=== PATIENT | male | born 1950 | race Caucasian/White ===

== ENCOUNTER → 2017-10-27 10:27 | Outpatient (CLI) | payer MEDICARE, SELFPAY ==
[2017-10-27 13:13] LABS: T4 Free Direct 1.39 ng/dL (0.76-1.46); Thyroid Stim Hormone (TSH) 0.71 uIU/mL (0.358-3.74)
== END ==
PROVIDERS: Family Provider Family Medicine; PCP Family Medicine; Visit Provider Family Medicine
DX: E03.9 Hypothyroidism, unspecified (principal)
CPT/HCPCS: 36415; 84439; 84443

== ENCOUNTER → 2018-09-11 13:57 | Outpatient (CLI) | payer MEDICARE, SELFPAY ==
[2018-09-11 14:37] LABS: Absolute Lymphocyte Count 1.86 X10^3/ul (0.83-4.51); Absolute Neutrophil Count 4.3 X10^3/uL (2.0-7.7); Basophil# 0.05 X10^3/uL; Basophil% 0.7 % (0-1); Eosinophils% 1.4 % (0-5); Hematocrit 45.1 % (40-54); Hemoglobin 14.9 g/dl (13.0-16.5); Lymphocyte # 1.86 X10^3/ul (4.0); Lymphocyte % 26.8 % (19-41); Mean Corpuscular Hgb 29.6 pg (27.0-32.0); Mean Corpuscular Volume 89.7 fL (80-94); Monocyte# 0.59 X10^3/uL; Monocyte% 8.5 % (0-10); Neutrophil # 4.34 X10^3/uL (2.7-7.7); Neutrophil % 62.5 % (47-70); Platelet Count 185 K/mm3 (150-450); RBC Distribution Width CV 13.6 % (11.6-14.6); RBC Distribution Width SD 44.7 fl (35.1-43.9); Red Blood Count 5.03 M/mm3 (4.6-6.2)
[2018-09-11 14:38] LABS: POSITIVE COUNT NO; POSITIVE DIFFERENTIAL NO; POSITIVE MORPHOLOGY NO
[2018-09-11 14:58] LABS: ALB/GLOB Ratio 0.9 RATIO (0.9-2.4); AST(SGOT) 22 U/L (15-37); Alanine Aminotransfer ALT/SGPT 30 U/L (16-61); Albumin, Serum 3.6 g/dL (3.2-5.0); Alkaline Phosphatase 72 U/L (45-117); Anion Gap 4 (5-15); BUN 18 mg/dL (7-18); BUN/Creat Ratio 15.9 RATIO (10-20); Calcium,Total 8.1 mg/dL (8.5-10.1); Chloride 107 mmol/L (98-107); Creatinine, Serum 1.13 mg/dL (0.70-1.30); EST Glomerular Filtration Rate 69 mL/min (>60); Est Glom Filt Rate - Afr Amer 83 mL/min (>60); Glucose 101 mg/dL (74-106); Potassium 3.8 mmol/L (3.5-5.1); Protein, Total 7.6 g/dL (6.4-8.2); Sodium Level 140 mmol/L (136-145); T4 Free Direct 1.34 ng/dL (0.76-1.46); Thyroid Stim Hormone (TSH) 1.62 uIU/mL (0.358-3.74)
== END ==
PROVIDERS: Family Provider Family Medicine; PCP Family Medicine; Visit Provider Family Medicine
DX: E03.9 Hypothyroidism, unspecified (principal); Z51.81 Encounter for therapeutic drug level monitoring
CPT/HCPCS: 36415; 80053; 84439; 84443; 85025

== ENCOUNTER 2021-06-25 15:57 | Inpatient (IN) | payer MEDICARE, SELFPAY ==
[2021-06-25 15:59] VITALS: BP 132/71; PULSE 88; RESP 20; TEMP 37.4; O2SAT 93; BMI 34.2
--- NOTE | 2021-06-25 16:28 | CT_ITS ---
STUDY: CT BRAIN WITHOUT CONTRAST REASON FOR EXAM: Male, 70 years old. Encephalopathy RADIATION DOSAGE (If Supplied By Facility): CTDIvol = ( 44.99 ) mGy, DLP = ( 2489.56 ) mGycm TECHNIQUE: Transaxial CT imaging of the brain was performed without administration of intravenous contrast material. Study is degraded by significant motion artifact Individualized dose optimization techniques were used for this CT. COMPARISON: No relevant priors. FINDINGS: Normal soft tissue structures. Normal calvarium. Normal size ventricles and extra-axial spaces for the patient''s age. Normal white matter tracts of the cerebral hemispheres. Normal basal ganglia and thalami. Normal brainstem. Normal cerebellum. There is no intracranial hemorrhage. There are no findings of an acute ischemic infarction. Normal visualized paranasal sinuses. CT/Brain/Head without Contrast IMPRESSION: Chronic involutional changes of the brain. No acute hemorrhage. However, because of the extensive motion artifact, a subtle hemorrhage could be overlooked. Electronically Signed: Ravi Blanco MD at 17:16 EST , Service support ,
--- NOTE | 2021-06-25 16:29 | EKG12_ITS ---
Test Reason : ALT LOC Blood Pressure : / mmHG Vent. Rate : 086 BPM Atrial Rate : 086 BPM P-R Int : 144 ms QRS Dur : 074 ms QT Int : 372 ms P-R-T Axes : 059 007 079 degrees QTc Int : 445 ms Normal sinus rhythm Low voltage QRS (Limb Leads) Nonspecific T wave abnormality Abnormal ECG Confirmed by TAMERA MAGANA, JOSIE ([id number]), offline editor CHERRY OCONNOR ([id number]) on 06/28/2021 11:07:32 AM Referred By: TIARA Confirmed By:JOSIE PHILIP MD
--- NOTE | 2021-06-25 16:31 | CM.ED ---
SOCIAL WORK Referral Source: Nursing Reason for Consult: Adult Protective Services (APS) Informed by nursing, APS has been involved in past due to living conditions. Patient lives home alone and family checks on patient. Last known well was Monday when family went over to visit. Per report, a family member went to the home on Monday and through the window he was walking naked. Family member did not feel comfortable going into the home. Family then checked on patient today and he was found half of the couch and confused. Nurse states patient is unkempt. Call to Anthony with APS to update patient here in ER. Message left. Plan: Anticipate admission Laurel Clinton MSW, TAX EXPERT
[2021-06-25 17:09] LABS: Absolute Lymphocyte Count 0.79 X10^3/uL (0.83-4.51); Absolute Neutrophil Count 3.9 X10^3/uL (2.0-7.7); Basophil# 0.02 X10^3/uL; Basophil% 0.4 % (0-1); Hematocrit 46.4 % (40-54); Hemoglobin 15.8 g/dL (13.0-16.5); Lymphocyte # 0.79 X10^3/ul (0.83-4.51); Lymphocyte % 14.4 % (19-41); Mean Corp Hgb Conc 34.1 g/dL (32-36); Mean Corpuscular Hgb 29.4 pg (27.0-32.0); Mean Corpuscular Volume 86.2 fL (80-94); Mean Platelet Vol. 11.1 fl (6.2-12.0); Monocyte# 0.71 X10^3/uL; NRBC Flagged by Analyzer 0 % (0-5); Neutrophil # 3.94 X10^3/uL (2.7-7.7); Neutrophil % 71.8 % (47-70); Platelet Count 103 K/mm3 (150-450); RBC Distribution Width CV 13.7 % (11.6-14.6); RBC Distribution Width SD 43.8 fl (35.1-43.9); Red Blood Count 5.38 M/mm3 (4.6-6.2); White Blood Count 5.5 K/mm3 (4.4-11.0)
[2021-06-25 17:12] LABS: International Normalized Ratio 1.1; Prothrombin Time (Protime)PT. 13.2 SECONDS (11.7-14.9)
[2021-06-25 17:13] LABS: Partial Thromboplast Time 42.9 Seconds (24.1-36.2)
[2021-06-25 17:14] LABS: BUN 24 mg/dL (7-18); Creatinine, Serum 0.96 mg/dL (0.70-1.30); Estimated Creatinine Clearance 74.99 ml/min; Glucose 114 mg/dL (74-106)
[2021-06-25 17:15] LABS: ALB/GLOB Ratio 0.7 RATIO (0.9-2.4); AST(SGOT) 42 U/L (15-37); Alanine Aminotransfer ALT/SGPT 28 U/L (16-61); Albumin, Serum 3.2 g/dL (3.2-5.0); Alkaline Phosphatase 52 U/L (45-117); Anion Gap 8 (5-15); BUN/Creat Ratio 24.9 RATIO (10-20); Calcium,Total 7.6 mg/dL (8.5-10.1); Chloride 104 mmol/L (98-107); EST Glomerular Filtration Rate 82 mL/min (>60); Est Glom Filt Rate - Afr Amer 99 mL/min (>60); Globulin 4.3 g/dL (2.2-4.2); Potassium 3.6 mmol/L (3.5-5.1); Protein, Total 7.5 g/dL (6.4-8.2); Sodium Level 137 mmol/L (136-145); Troponin-I HS 16 pg/mL (3.0-78.0)
[2021-06-25 17:20] LABS: Lactic Acid 1.3 mmol/L (0.4-1.9)
--- NOTE | 2021-06-25 17:24 | RAD_ITS ---
STUDY: X-RAY CHEST REASON FOR EXAM: Male, 70 years old. CHEST PAIN Fever TECHNIQUE: XR Chest 1 View COMPARISON: 06/28/2012 FINDINGS: Prominent perihilar markings. Normal size heart. Normal mediastinum and sophia. Normal visualized pulmonary arteries. There is atherosclerotic calcification of the aortic arch with tortuosity. There are diffuse degenerative changes of the visualized thoracic spine. There is degenerative osteoarthritis of the bilateral shoulders. There is no demonstrated abnormality of the visualized soft tissue structures of the upper abdomen. RAD/Chest 1 View (Portable) IMPRESSION: There are bilateral perihilar infiltrates. This may suggest a perihilar pneumonia vs bronchitis. Electronically Signed: Sundar Corrales MD at 17:40 EST , Service support ,
[2021-06-25 17:32] LABS: Bacteria 0 SEEN /hpf (None Seen); Red Blood Cells-Urine 0 SEEN /hpf (0-5)
[2021-06-25 17:36] LABS: Allen Test Positive; Base Excess 1 mmol/L (-2 to +2); Bicarbonate 24.8 mmol/L (22-26); Blood Gas Specimen Type ART; O2 Delivery Device Room Air; PO2 66 mmHG (75-100); SITE L Radial; SO2 94 % (95-99); Total Carbon Dioxide 26 mmol/L; pCO2 35.6 mmHg (35-45); pH 7.45 (7.35-7.45)
[2021-06-25 17:36] LABS: Color, Urine Amber (Yellow); Glucose, Dipstick Normal (Normal); Ketone-Dipstick 50 mg/dl (Negative); Leukocyte Esterase-Dipstick 25 /ul (Negative); Nitrite-Dipstick Negative (Negative); Occult Blood-Urine 10 /ul (Negative); Protein-Dipstick 100 mg/dl (Negative); Specific Gravity, Urine 1.025 (1.002-1.030); Urine Clarity Clear (Clear); Urine Urobilinogen 1 mg/dl (Normal)
[2021-06-25 17:37] VITALS: BP 128/64; PULSE 85; RESP 17; O2SAT 94
[2021-06-25 17:43] LABS: Urine Bilirubin Dipstick 1 mg/dL (Negative)
[2021-06-25 17:44] LABS: Mucous, Urine 1+ /hpf (<or=2+); Squamous Epithelial Cells - UA 0-5 SEEN /hpf (0-5); White Blood Cells 0-5 SEEN /hpf (0-5)
--- NOTE | 2021-06-25 17:52 | EX.ED.CRITCA ---
HPI History of Present Illness Chief Complaint: Alt LOC Detail of Chief Complaint: Altered mental status last seen Monday Informant: family Onset/Context/Timing Onset: - (Unknown) Context: - (Unknown) Timing: - (Unknown) Quality: Altered mental status Location: Found at home on the ground Worsened by: Unknown Relieved by: Nothing Associated Symptoms Length of loss of consciousness: Patient is an elderly male who lives by himself. He was last seen by famil Narrative Narrative: Patient presents with altered mental status. He does have an elevated temperature. He attempts to speak but is not audible or fluent. History is limited to what family member can tell me Prior similar symptoms: No Recent Illness/Hospitalization: No [facility] Medical History Dementia Hypothyroid Home Medications donepezil 10 mg PO DAILY 06/25/21 [History Last Taken Unknown] levothyroxine 175 mcg PO DAILY 06/25/21 [History Last Taken Unknown] terbinafine HCl 250 mg PO DAILY 06/25/21 [History Last Taken Unknown] Allergy/AdvReac Type Severity Reaction Status Date / Time No Known Allergies Allergy Verified 06/25/21 16:04 Social History (Updated 06/25/21 @ 17:[address] Rivas Hall MD) household members: none Smoking Status: Current every day smoker tobacco type: cigarettes substance use type: does not use ROS ROS ED Review of Systems ROS Unobtainable: due to mental status EXAM Physical Exam Const Vital Signs: 06/25/21 15:59 06/25/21 17:37 Temperature 99.4 F H Temperature Source Axillary Pulse Rate 88 85 Respiratory Rate 20 H 17 Blood Pressure 132/71 H 128/64 H Blood Pressure Mean 91 85 Pulse Ox 93 94 Oxygen Delivery Method Room Air Room Air Positive well nourished, well developed and obese General Appearance ED: well developed, NAD and other Patient is somnolent and at times attempts to answer questions ; Negative for pallor Nutritional Appearance: obese HEENT HEENT Narrative: Tongue is dry. Uvula is midline. normocephalic and atraumatic; Negative for cyanosis of lips/distal nose Eyes PERRL and EOMs intact bilaterally Eyes Narrative: There is no subconjunctival hemorrhage. General Eye ED: Negative for pale conjunctiva or scleral icterus Neck no lymphadenopathy, supple and no JVD Neck Narrative: Trachea is midline. There is no inspiratory stridor. Resp Resp Narrative: Decreased breath sounds question of rales bilaterally. Difficult to assess because of poor inspiratory volume Cardio regular rate, regular rhythm, S1 normal heart sound, S2 normal heart sound and no murmurs GI non-tender, non-distended and no masses Auscultation: normoactive bowel sounds Palpation: soft Back/Spine Back/Spine Narrative: No response Extremity Extremity Narrative: There is edema of the lower extremities. Pulses are palpable upper and lower extremities. Neuro No oriented x3 Sensorium / Orientation: Negative for alert Psych Negative for mental status grossly normal Skin General Skin Exam: Negative for jaundice or pallor Lesions: no lesions Rashes: no rashes MDM MDM MDM Narrative Medical decision making narrative: With history of being on the ground we will need to rule out intracranial bleed versus stroke versus metabolic or infectious causes. CT of the head, chest x-ray and appropriate blood work was ordered. COVID test was ordered as well. Unknown whether he is vaccinated or not. Because of his concern for COVID he only received a 500 cc bolus. Lab Data Attestation: I reviewed the patient's lab results. Lab results narrative: CBC is unremarkable. Coags are unremarkable. BUN to creatinine ratio is elevated. Lactate is normal. Urinalysis is unremarkable. Labs: Laboratory Results - last 24 hr 06/25/21 06/25/21 06/25/21 16:10 16:10 16:10 WBC 5.5 RBC 5.38 Hgb 15.8 Hct 46.4 MCV 86.2 MCH 29.4 MCHC 34.1 RDW Std Deviation 43.8 RDW Coeff of Evette 13.7 Plt Count 103 L MPV 11.1 Immature Gran % (Auto) 0.400 Neut % (Auto) 71.8 H Lymph % (Auto) 14.4 L [place] % (Auto) 13.0 H Eos % (Auto) 0.0 Baso % (Auto) 0.4 Absolute Neuts (auto) 3.9 Absolute Lymphs (auto) 0.79 L Nucleated RBC % 0 PT 13.2 INR 1.1 APTT 42.9 H Sodium 137 Potassium 3.6 Chloride 104 Carbon Dioxide 25.0 Anion Gap 8 BUN 24 H Creatinine 0.96 Estim Creat Clear Calc 74.99 Est GFR (MDRD) Af Amer 99 Est GFR (MDRD) Non-Af 82 BUN/Creatinine Ratio 24.9 H Glucose 114 H Lactic Acid Calcium 7.6 L Total Bilirubin 0.90 AST 42 H ALT 28 Alkaline Phosphatase 52 Troponin I High Sens 16 Total Protein 7.5 Albumin 3.2 Globulin 4.3 H Albumin/Globulin Ratio 0.7 L Urine Color Urine Clarity Urine pH Ur Specific [place] Urine Protein Urine Glucose (UA) Urine Ketones Urine Occult Blood Urine Nitrite Urine Bilirubin Urine Urobilinogen Ur Leukocyte Esterase Urine RBC Urine WBC Ur Squamous Epith Cells Urine Bacteria Urine Mucus 06/25/21 06/25/21 16:10 17:20 WBC RBC Hgb Hct MCV MCH MCHC RDW Std Deviation RDW Coeff of Evette Plt Count MPV Immature Gran % (Auto) Neut % (Auto) Lymph % (Auto) [place] % (Auto) Eos % (Auto) Baso % (Auto) Absolute Neuts (auto) Absolute Lymphs (auto) Nucleated RBC % PT INR APTT Sodium Potassium Chloride Carbon Dioxide Anion Gap BUN Creatinine Estim Creat Clear Calc Est GFR (MDRD) Af Amer Est GFR (MDRD) Non-Af BUN/Creatinine Ratio Glucose Lactic Acid 1.3 Calcium Total Bilirubin AST ALT Alkaline Phosphatase Troponin I High Sens Total Protein Albumin Globulin Albumin/Globulin Ratio Urine Color Juani Urine Clarity Clear Urine pH 5.0 Ur Specific [place] 1.025 Urine Protein 100 H Urine Glucose (UA) Normal Urine Ketones 50 H Urine Occult Blood 10 H Urine Nitrite Negative Urine Bilirubin 1 H Urine Urobilinogen 1 H Ur Leukocyte Esterase 25 H Urine RBC 0 SEEN Urine WBC 0-5 SEEN Ur Squamous Epith Cells 0-5 SEEN Urine Bacteria 0 SEEN Urine Mucus 1+ ABG Data ABG results: ABG 06/25/21 17:32 Specimen Type ART Sample Site L Radial pH 7.45 Bicarbonate Actual 24.8 Total CO2 26 Base Excess 1 O2 Saturation 94 L ABG pCO2 35.6 ABG pO2 66 L Surendra Test Positive O2 Delivery Device Room Air Radiography Chest X-Ray - ED: 1 View and Read by ED Physician (Single view chest x-ray reveals bilateral interstitial infiltrate consistent with COVID-pneumonia.) Diagnostic Testing: Clinical Impression(s) from Imaging Studies Brain CT 06/25/21 16:28 IMPRESSION: Chronic involutional changes of the brain. No acute hemorrhage. However, because of the extensive motion artifact, a subtle hemorrhage could be overlooked. Electronically Signed: Ravi Blanco MD at 17:16 EST , Service support , Chest X-Ray 06/25/21 17:24 IMPRESSION: There are bilateral perihilar infiltrates. This may suggest a perihilar pneumonia vs bronchitis. Electronically Signed: Sundar Corrales MD at 17:40 EST , Service support , EKG Initial EKG: Attestation: I personally reviewed and interpreted this EKG as follows: Interpretation: Sinus Rhythm (Ventricular rate eighty-six. CT interval is 144 ms. QS duration 74 ms. QT duration three and 72 ms. Heidrick is normal. There is some nonspecific ST-T wave changes Max may be due to his breathing.) Critical Care Time Critical Care Time: Yes Critical care time (excluding procedures): 30-74 minutes (31 minutes), Including time spent: (History, physical, discussion with family members, interpretation laboratory results,), Discussing w/Patient &/or Family/Shuttle Buggy Operator, Discussing w/Consultants (Discussed with hospitalist.) and Arranging Admission or Transfer Discharge Plan Dx/Rx/DC Orders Clinical Impression: Infectious encephalopathy, COVID-19 virus infection, Acute prerenal azotemia Disposition Disposition: Acute Care [facility]
--- NOTE | 2021-06-25 18:01 | HP.PCM.HOS_ITS ---
HPI - General General Date of Admission: 06/25/21 Date of Service: 06/25/21 Chief Complaint: Altered mental status HPI Narrative VIRGILIO SHERIDAN, is a 70 M with past medical history significant for early onset dementia, history of toxic multinodular goiter status post thyroidectomy currently on levothyroxine who was brought to the emergency department by the family after he was found on the floor in his room. Patient had apparently not been seen by his family since 06/21/2021. Was brought to the emergency department in view of progressive generalized weakness as well as confusion. Work-up in the ED came back positive for SARS-CoV-2 infection. Patient however did not require oxygen. Patient vaccination status could not be obtained. Admitted to regular nursing floor for further management [facility] Medical History Dementia Hypothyroid Home Medications donepezil 10 mg PO DAILY 06/25/21 [History Last Taken Unknown] levothyroxine 175 mcg PO DAILY 06/25/21 [History Last Taken Unknown] terbinafine HCl 250 mg PO DAILY 06/25/21 [History Last Taken Unknown] Allergy/AdvReac Type Severity Reaction Status Date / Time No Known Allergies Allergy Verified 06/25/21 16:04 Family History unable to obtain unable to obtain Surgical History (Updated 06/25/21 @ 18:[address] Raphael Osei MD) H/O thyroidectomy Social History household members: none Smoking Status: Current every day smoker tobacco type: cigarettes substance use type: does not use ROS Review of Systems ROS Unobtainable: due to encephalopathy and due to mental condition Vital Signs Vital Signs Vital Signs: 06/25/21 15:59 06/25/21 17:37 Temperature 99.4 F H Temperature Source Axillary Pulse Rate 88 85 Respiratory Rate 20 H 17 Blood Pressure 132/71 H 128/64 H Blood Pressure Mean 91 85 Pulse Ox 93 94 Oxygen Delivery Method Room Air Room Air Weight Weight: 108.3 kg Body Mass Index (BMI) 34.2 Physical Exam Narrative GENERAL: Patient appears restless and incoherent HEENT: Atraumatic; EYES; Anicteric, Normal Conjunctiva NECK; supple, normal thyroid, RESPIRATORY: Diminished to auscultation CARDIOVASCULAR: Regular S1 S2, GI: soft, normoactive bowel sounds, : No Renal angle tenderness; EXTREMITIES: No edema, no clubbing, MUSCULOSKELETAL: no muscle waisting NEURO: Awake; no lateralizing signs. SKIN: No Rash PSYCH; Flat affect Results Lab / Micro Data Result Diagrams: 06/25/21 16:10 06/25/21 16:10 Labs: Laboratory Results - last 24 hr 06/25/21 16:10: WBC 5.5, RBC 5.38, Hgb 15.8, Hct 46.4, MCV 86.2, MCH 29.4, MCHC 34.1, RDW Std Deviation 43.8, RDW Coeff of Evette 13.7, Plt Count 103 L, MPV 11.1, Immature Gran % (Auto) 0.400, Neut % (Auto) 71.8 H, Lymph % (Auto) 14.4 L, [place] % (Auto) 13.0 H, Eos % (Auto) 0.0, Baso % (Auto) 0.4, Absolute Neuts (auto) 3.9, Absolute Lymphs (auto) 0.79 L, Nucleated RBC % 0 06/25/21 16:10: PT 13.2, INR 1.1, APTT 42.9 H 06/25/21 16:10: Sodium 137, Potassium 3.6, Chloride 104, Carbon Dioxide 25.0, Anion Gap 8, BUN 24 H, Creatinine 0.96, Estim Creat Clear Calc 74.99, Est GFR (MDRD) Af Amer 99, Est GFR (MDRD) Non-Af 82, BUN/Creatinine Ratio 24.9 H, Glucose 114 H, Calcium 7.6 L, Total Bilirubin 0.90, AST 42 H, ALT 28, Alkaline Phosphatase 52, Troponin I High Sens 16, Total Protein 7.5, Albumin 3.2, Globulin 4.3 H, Albumin/Globulin Ratio 0.7 L 06/25/21 16:10: Lactic Acid 1.3 06/25/21 17:20: Urine Color Juani, Urine Clarity Clear, Urine pH 5.0, Ur Specific [place] 1.025, Urine Protein 100 H, Urine Glucose (UA) Normal, Urine Ketones 50 H, Urine Occult Blood 10 H, Urine Nitrite Negative, Urine Bilirubin 1 H, Urine Urobilinogen 1 H, Ur Leukocyte Esterase 25 H, Urine RBC 0 SEEN, Urine WBC 0-5 SEEN, Ur Squamous Epith Cells 0-5 SEEN, Urine Bacteria 0 SEEN, Urine Mucus 1+ Micro: Microbiology 06/25/21 17:00 Nasal Secretion SARS-CoV-2 Antigen (Rapid) - Final SARS-CoV-2 (COVID 19) ABG Data ABG results: ABG 06/25/21 17:32 Specimen Type ART Sample Site L Radial pH 7.45 Bicarbonate Actual 24.8 Total CO2 26 Base Excess 1 O2 Saturation 94 L ABG pCO2 35.6 ABG pO2 66 L Surendra Test Positive O2 Delivery Device Room Air Radiology Impression Brain CT 06/25/21 16:28 IMPRESSION: Chronic involutional changes of the brain. No acute hemorrhage. However, because of the extensive motion artifact, a subtle hemorrhage could be overlooked. Electronically Signed: Ravi Blanco MD at 17:16 EST , Service support , Chest X-Ray 06/25/21 17:24 IMPRESSION: There are bilateral perihilar infiltrates. This may suggest a perihilar pneumonia vs bronchitis. Electronically Signed: Sundar Corrales MD at 17:40 EST , Service support , Assessment & Plan Assessment/Plan (1) COVID-19 virus infection: (2) Infectious encephalopathy: PLAN: Patient is a 70-year-old gentleman with underlying history of early onset dementia admitted with altered mental status 1. Acute encephalopathy ? Etiology not clear at this point patient however tested positive for COVID admitted to regular nursing floor for further management. Patient had CT of the head obtained was negative 2. Acute COVID infection ? Patient admitted for symptomatic treatment currently not requiring oxygen therefore not a candidate for Decadron moreover onset of symptoms not known ruling him out for remdesivir 3. Early onset dementia ? Patient is on donepezil discontinue in addition to supportive care 4. History of thyroidectomy ? On account of toxic multinodular goiter. Patient is on replacement therapy with levothyroxine did order for TSH 5. DVT prophylaxis ? SC Lovenox ? CODE STATUS unverifiable at this point Charges/Coding Visit Charges Inpatient E&M: 57679 Init Hosp L3
[2021-06-25 18:09] VITALS: BP 147/78; PULSE 64; RESP 16; TEMP 37.2
[2021-06-25 18:42] LABS: Fibrinogen 521 mg/dl (203-444)
[2021-06-25 18:57] LABS: Procalcitonin 0.06 ng/mL (0.00-0.09)
[2021-06-25 18:58] LABS: D-Dimer Quantitative (DVT/PE) 1.34 FEU/ug/m (0.27-0.49)
[2021-06-25 18:59] LABS: Thyroid Stim Hormone (TSH) 1.88 uIU/mL (0.358-3.74)
[2021-06-25 19:42] VITALS: BMI 33.4
[2021-06-25 19:43] VITALS: BP 123/62; PULSE 72; RESP 24; TEMP 37.4; O2SAT 93
--- NOTE | 2021-06-25 20:12 | CT_ITS ---
EXAM: CT ANGIOGRAPHY CHEST WITHOUT AND WITH INTRAVENOUS CONTRAST CLINICAL INDICATION: suspected PE TECHNIQUE: Helically acquired angiography images were obtained of the chest without and with intravenous contrast. This CT exam was performed using one or more of the following dose reduction techniques: automated exposure control, adjustment of the mA and/or kV according to patient size, and/or use of iterative reconstruction technique. This report was created using 1[employer] report generation technology. MIP reconstructed images were created and reviewed. CONTRAST: IV 100mL [id number] COMPARISON: None. FINDINGS: PULMONARY ARTERIES: No demonstrated pulmonary embolism or arterial dissection. AORTA: There is atherosclerotic calcification of the aortic arch with tortuosity and elongation of the aortic arch and descending thoracic aorta. Normal in caliber. No evidence of dissection. GREAT VESSELS OF AORTIC ARCH: Unremarkable. Normal in caliber. No evidence of dissection. LUNGS AND PLEURAL SPACES: There is bilateral pneumonia. No mass. No pleural effusion or thickening. HEART: There are calcifications of the coronary arteries. No pericardial effusion. No signs of right heart strain, ratio of right ventricle to left ventricle measures less than 1. MEDIASTINUM: Unremarkable. No mediastinal or hilar adenopathy. Esophagus is unremarkable. No hiatal hernia. THYROID: Unremarkable. No thyroid lesions. BONES/JOINTS: There are degenerative findings of the thoracic spine. No suspicious lytic or blastic abnormality. CT/CTA Chest W/WO Contrast IMPRESSION: 1. No demonstrated pulmonary embolism or arterial dissection. 2. There is bilateral pneumonia. Electronically Signed: Sundar Corrales MD at 21:27 EST , Service support ,
--- NOTE | 2021-06-25 21:55 | PCS.PANDOC ---
PANDEMIC DOCUMENTATION INITIATED: Date: 06/25/2021 Time: 1999
[2021-06-25] MEDS: 0.9% Normal Saline 1,000 ML 125 ML IV (22:41)
[2021-06-25] MEDS: Enoxaparin 40 MG/0.4 ML Syringe SC (22:51)
[2021-06-25 23:29] LABS: CPK Total, Creatine Kinase 421 U/L (39-308); LDH 296 U/L (87-241); Troponin-I HS 21 pg/mL (3.0-78.0)
[2021-06-25 23:35] LABS: Lactic Acid 1.6 mmol/L (0.4-1.9)
[2021-06-26] VITALS (9 sets, daily range): BP systolic 109–133; BP diastolic 52–69; PULSE 62–87; RESP 16–18; TEMP 36.1–37.3; O2SAT 88–96
[2021-06-26] MEDS: Menthol/Lanolin/Calamine/Znox 113 GM Tube 1 APPLIC TOPICAL ×3 (06:05→21:31)
[2021-06-26] MEDS: 0.9% Normal Saline 1,000 ML 125 ML IV ×2 (06:06→15:55)
[2021-06-26 06:19] LABS: Absolute Lymphocyte Count 1.02 X10^3/uL (0.83-4.51); Absolute Neutrophil Count 5.3 X10^3/uL (2.0-7.7); Basophil# 0.02 X10^3/uL; Basophil% 0.3 % (0-1); Hematocrit 46.6 % (40-54); Hemoglobin 14.9 g/dL (13.0-16.5); Lymphocyte # 1.02 X10^3/ul (0.83-4.51); Lymphocyte % 14.1 % (19-41); Mean Corpuscular Hgb 29.4 pg (27.0-32.0); Mean Corpuscular Volume 92.1 fL (80-94); Mean Platelet Vol. 10.9 fl (6.2-12.0); Monocyte# 0.81 X10^3/uL; Monocyte% 11.2 % (0-10); NRBC Flagged by Analyzer 0 % (0-5); Neutrophil # 5.34 X10^3/uL (2.7-7.7); Neutrophil % 73.8 % (47-70); POSITIVE COUNT YES; Platelet Count 88 K/mm3 (150-450); RBC Distribution Width SD 47.8 fl (35.1-43.9); Red Blood Count 5.06 M/mm3 (4.6-6.2); White Blood Count 7.2 K/mm3 (4.4-11.0)
[2021-06-26 06:42] LABS: ALB/GLOB Ratio 0.7 RATIO (0.9-2.4); AST(SGOT) 35 U/L (15-37); Alanine Aminotransfer ALT/SGPT 26 U/L (16-61); Albumin, Serum 2.7 g/dL (3.2-5.0); Alkaline Phosphatase 44 U/L (45-117); Anion Gap 5 (5-15); BUN 21 mg/dL (7-18); Calcium,Total 6.9 mg/dL (8.5-10.1); Chloride 106 mmol/L (98-107); Creatinine, Serum 0.91 mg/dL (0.70-1.30); EST Glomerular Filtration Rate 87 mL/min (>60); Est Glom Filt Rate - Afr Amer 106 mL/min (>60); Estimated Creatinine Clearance 79.11 ml/min; Glucose 97 mg/dL (74-106); Magnesium 2.1 mg/dL (1.6-2.6); Phosphorus 3.4 mg/dL (2.5-4.9); Potassium 3.6 mmol/L (3.5-5.1); Protein, Total 6.7 g/dL (6.4-8.2); Sodium Level 139 mmol/L (136-145)
[2021-06-26 06:43] LABS: Differential Indicated SCAN CRITERIA MET
[2021-06-26 06:44] LABS: Differential Comment SCANNED
--- NOTE | 2021-06-26 07:37 | PN.HOSP_ITS ---
Subjective Subjective Patient much more awake compared to previous day however still remains delirious Objective Data Objective Data Vital Signs: Vital Signs Temp Pulse Resp BP Pulse Ox 98.4 F 62 16 111/54 L 92 06/26/21 06:19 06/26/21 06:19 06/26/21 06:19 06/26/21 06:19 06/26/21 06:19 Oxygen Delivery Method Room Air Weight: 105.7 kg Body Mass Index (BMI) 33.4 Intake & Output: Intake and Output for Last 24 Hours 06/24/21 06/25/21 06/26/21 23:59 23:59 23:59 Intake Total 500 / 500 927.08 / 927.08 Output Total 550 / 550 Balance 500 / 500 377.08 / 377.08 Lab / Micro Data Result Diagrams: 06/26/21 05:38 06/26/21 05:38 Labs: Laboratory Results - last 24 hr 06/25/21 16:10: WBC 5.5, RBC 5.38, Hgb 15.8, Hct 46.4, MCV 86.2, MCH 29.4, MCHC 34.1, RDW Std Deviation 43.8, RDW Coeff of Evette 13.7, Plt Count 103 L, MPV 11.1, Immature Gran % (Auto) 0.400, Neut % (Auto) 71.8 H, Lymph % (Auto) 14.4 L, [place] % (Auto) 13.0 H, Eos % (Auto) 0.0, Baso % (Auto) 0.4, Absolute Neuts (auto) 3.9, Absolute Lymphs (auto) 0.79 L, Nucleated RBC % 0 06/25/21 16:10: PT 13.2, INR 1.1, APTT 42.9 H 06/25/21 16:10: Sodium 137, Potassium 3.6, Chloride 104, Carbon Dioxide 25.0, Anion Gap 8, BUN 24 H, Creatinine 0.96, Estim Creat Clear Calc 74.99, Est GFR (MDRD) Af Amer 99, Est GFR (MDRD) Non-Af 82, BUN/Creatinine Ratio 24.9 H, Glucose 114 H, Calcium 7.6 L, Total Bilirubin 0.90, AST 42 H, ALT 28, Alkaline Phosphatase 52, Troponin I High Sens 16, Total Protein 7.5, Albumin 3.2, Globulin 4.3 H, Albumin/Globulin Ratio 0.7 L 06/25/21 16:10: Lactic Acid 1.3 06/25/21 16:10: Fibrinogen 521 H, D-Dimer Quant (PE/DVT) 1.34 H* 06/25/21 16:10: Procalcitonin 0.06 06/25/21 16:10: TSH 1.88 06/25/21 17:20: Urine Color Juani, Urine Clarity Clear, Urine pH 5.0, Ur Specific [place] 1.025, Urine Protein 100 H, Urine Glucose (UA) Normal, Urine Ketones 50 H, Urine Occult Blood 10 H, Urine Nitrite Negative, Urine Bilirubin 1 H, Urine Urobilinogen 1 H, Ur Leukocyte Esterase 25 H, Urine RBC 0 SEEN, Urine WBC 0-5 SEEN, Ur Squamous Epith Cells 0-5 SEEN, Urine Bacteria 0 SEEN, Urine Mucus 1+ 06/25/21 23:00: Lactate Dehydrogenase 296 H, Total Creatine Kinase 421 H, Troponin I High Sens 21 06/25/21 23:00: Lactic Acid 1.6 06/26/21 05:38: WBC 7.2, RBC 5.06, Hgb 14.9, Hct 46.6, MCV 92.1 D, MCH 29.4, MCHC 32.0 D, RDW Std Deviation 47.8 H, RDW Coeff of Evette 14.0, Plt Count 88 L, MPV 10.9, Immature Gran % (Auto) 0.600, Neut % (Auto) 73.8 H, Lymph % (Auto) 14.1 L, [place] % (Auto) 11.2 H, Eos % (Auto) 0.0, Baso % (Auto) 0.3, Absolute Neuts (auto) 5.3, Absolute Lymphs (auto) 1.02, Nucleated RBC % 0, Differential Comment SCANNED 06/26/21 05:38: Sodium 139, Potassium 3.6, Chloride 106, Carbon Dioxide 28.0, Anion Gap 5, BUN 21 H, Creatinine 0.91, Estim Creat Clear Calc 79.11, Est GFR (MDRD) Af Amer 106, Est GFR (MDRD) Non-Af 87, BUN/Creatinine Ratio 23.0 H, Glucose 97, Calcium 6.9 L, Phosphorus 3.4, Magnesium 2.1, Total Bilirubin 0.70, AST 35, ALT 26, Alkaline Phosphatase 44 L, Total Protein 6.7, Albumin 2.7 L, Globulin 4.0, Albumin/Globulin Ratio 0.7 L Micro: Microbiology 06/25/21 17:00 Nasal Secretion SARS-CoV-2 Antigen (Rapid) - Final SARS-CoV-2 (COVID 19) ABG Data ABG results: ABG 06/25/21 17:32 Specimen Type ART Sample Site L Radial pH 7.45 Bicarbonate Actual 24.8 Total CO2 26 Base Excess 1 O2 Saturation 94 L ABG pCO2 35.6 ABG pO2 66 L Surendra Test Positive O2 Delivery Device Room Air Radiography Diagnostic Testing: Radiology Impression Brain CT 06/25/21 16:28 IMPRESSION: Chronic involutional changes of the brain. No acute hemorrhage. However, because of the extensive motion artifact, a subtle hemorrhage could be overlooked. Electronically Signed: Ravi Blanco MD at 17:16 EST , Service support , Chest X-Ray 06/25/21 17:24 IMPRESSION: There are bilateral perihilar infiltrates. This may suggest a perihilar pneumonia vs bronchitis. Electronically Signed: Sundar Corrales MD at 17:40 EST , Service support , Chest CTA 06/25/21 20:12 IMPRESSION: 1. No demonstrated pulmonary embolism or arterial dissection. 2. There is bilateral pneumonia. Electronically Signed: Sundar Corrales MD at 21:27 EST , Service support , Physical Exam Narrative GENERAL: Remains incoherent HEENT: Atraumatic; EYES; Anicteric, Normal Conjunctiva NECK; supple, normal thyroid, RESPIRATORY: Diminished to auscultation CARDIOVASCULAR: Regular S1 S2, GI: soft, normoactive bowel sounds, : No Renal angle tenderness; EXTREMITIES: Chronic skin changes lower extremities MUSCULOSKELETAL: no muscle waisting NEURO: Awake; no lateralizing signs. SKIN: No Rash PSYCH; Flat affect Assessment & Plan Assessment/Plan (1) COVID-19 virus infection: (2) Infectious encephalopathy: PLAN: Patient is a 70-year-old gentleman with underlying history of early onset dementia admitted with altered mental status 1. Acute encephalopathy ? Etiology not clear at this point patient however tested positive for COVID admitted to regular nursing floor for further management. Patient had CT of the head obtained was negative -06/26/2021; Patient much more awake compared to previous day however still remains deliri 2. Acute COVID infection ? Patient admitted for symptomatic treatment currently not requiring oxygen therefore not a candidate for Decadron moreover onset of symptoms not known ruling him out for remdesivir -Patient had to be placed on supplemental oxygen resulting in patient being initiated on Decadron. He was also found to have elevated D-dimer, CTA of the chest was negative for PE he was however found to have bilateral pneumonia. Decadron initiated. Also did start superimposed antibiotic therapy 3. Acute rhabdomyolysis Due to prolonged period of immobilization on fluids with monitoring of CPK levels 5. Thrombocytopenia ? 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 Patient had been started on Lovenox on admission discontinued due to further drop in platelet counts level 6. Early onset dementia ? Patient is on donepezil discontinue in addition to supportive care 7. History of thyroidectomy ? On account of toxic multinodular goiter. Patient is on replacement therapy with levothyroxine did order for TSH 8. DVT prophylaxis ? SCDs only in view of above ? CODE STATUS unverifiable at this point Charges/Coding Visit Charges Inpatient E&M: 56810 Subs Hosp L3
[2021-06-26] MEDS: Donepezil HCl 10 MG Tablet PO (07:55)
[2021-06-26] MEDS: Enoxaparin 40 MG/0.4 ML Syringe SC (07:55)
--- NOTE | 2021-06-26 09:19 | NURSING ---
pt calm, not pulling at tubes at this time. restraints removed
[2021-06-26] MEDS: Ceftriaxone 1 GM/50 ML BAG IV (11:01)
[2021-06-26] MEDS: dexAMETHasone 10 MG/ML Vial 6 MG IV (11:02)
--- NOTE | 2021-06-26 12:10 | CASEMGMT ---
TRINY PIMENTEL Assessment: Initial transition planning/care coordination assessment completed via phone with pt's brother, Jorden, only contact listed as pt is confused. TRINY PIMENTEL introduced self and role at [facility], brother voices understanding and consents to assessment. Pt with known dementia and per brother, pt has been declining for several months(landlord threatened to evict pt d/t unfit living conditions) but pt's son/qlixmdox-fu-hog have now gotten involved with pt and helped pt get apt cleaned up. Pt's son/uwwadmfg-ef-xfc added to contacts. Brother states he will answer assessment questions but that son/izdnjkkb-hd-mcr would be contacts now although he states he will help if needed. Per notes, pt has not been able to follow commands and was found on ground in apt, was last seen 3-4 days ago. Unknown if pt is vaccinated for COVID. Care providers, pharmacy, and demographics verified/updated. Presentation: Pt brought in for confusion, found on ground, unfit to care for self, dementia Admitting dx: COVID w/ encephalopathy PCP: [facility] Specialists: none Preferred Pharmacy: [facility] Insurance: [facility] Prescription Benefit: Yes Living Will/HPOA: Pt does not have LW/HPOA. LNOK: Sacha Taylor, son; Radha Taylor, [id number] Living Arrangements: Pt lives alone in apt with no steps in and states no concerns at home. Pt was independent with ADL's, but family has been assisting. Transportation: Pt's son/brother drive and state no transportation concerns. DME/HHC: Pt has no current DME. Brother states no preference for DME and [facility] is preferred provider. Pt has no hx of HHC or SNF. Pt's brother states concerns with pt going home at time of discharge. Pt is retired. Pt does smoke pack cigarettes daily and occasionally drinks ETOH. CM to follow for therapy notes and any further discharge planning/needs. Advised brother to ask for CM if any further questions/concerns/needs arise, voices understanding. Plan: . TBD [place] TRINY PIMENTEL
--- NOTE | 2021-06-26 15:26 | CASEMGMT ---
Call from pt's [id number] inquiring about plan of care and this RN CM explained SNF's, AL's, and LT care. Per Radha, pt did have [facility] assessment and qualifies for aides but awaiting physician order. Advised qyizoadt-vv-niw that therapy has not seen pt yet and that SW can call her on monday to f/u on POC, voices understanding and she states pt will likely need to go to SNF at discharge. CM to follow. Talat AGOSTO CM
[2021-06-27] VITALS (9 sets, daily range): BP systolic 116–138; BP diastolic 61–89; PULSE 55–71; RESP 16–18; TEMP 36.1–36.7; O2SAT 94–97
[2021-06-27] MEDS: 0.9% Normal Saline 1,000 ML 125 ML IV ×3 (00:19→16:48)
--- NOTE | 2021-06-27 07:35 | PCM.PN.HOSP ---
Subjective Subjective Patient's level of sensorium markedly improved. Patient is able to carry out a conversation. CPK down t to 219 from 421. Calcium 6.2 Objective Data Objective Data Vital Signs: Vital Signs Temp Pulse Resp BP Pulse Ox 97.3 F L 69 16 116/89 H 96 06/27/21 03:54 06/27/21 03:54 06/27/21 03:54 06/27/21 03:54 06/27/21 03:54 Oxygen Flow Rate (L/min) 2 Oxygen Delivery Method Room Air Weight: 105.7 kg Body Mass Index (BMI) 33.4 Intake & Output: Intake and Output for Last 24 Hours 06/25/21 06/26/21 06/27/21 23:59 23:59 23:59 Intake Total 500 / 500 3330.00 / 3330.00 Output Total 1050 / 1200 450 / 450 Balance 500 / 500 2280.00 / 2130.00 -450 / -450 Lab / Micro Data Result Diagrams: 06/27/21 06:50 06/27/21 06:50 Micro: Microbiology 06/25/21 16:40 Blood Culture (Wb) - Right Hand Blood Culture - Preliminary 06/25/21 17:20 Urine Catheter - [place] Urine Culture - Preliminary Culture exhibits no growth. 06/25/21 23:00 Urine, Random Legionella Antigen - Final 06/25/21 23:00 Urine Catheter - [place] Streptococcus pneumoniae Antigen (M - Final 06/25/21 17:00 Nasal Secretion SARS-CoV-2 Antigen (Rapid) - Final SARS-CoV-2 (COVID 19) Physical Exam Narrative GENERAL:cooperative HEENT: Atraumatic; EYES; Anicteric, Normal Conjunctiva NECK; supple, normal thyroid, RESPIRATORY: Diminished to auscultation CARDIOVASCULAR: Regular S1 S2, GI: soft, normoactive bowel sounds, : No Renal angle tenderness; EXTREMITIES: Chronic skin changes lower extremities MUSCULOSKELETAL: no muscle waisting NEURO: Awake; no lateralizing signs. SKIN: No Rash PSYCH; Flat affect Assessment & Plan Assessment/Plan (1) COVID-19 virus infection: (2) Infectious encephalopathy: PLAN: Patient is a 70-year-old gentleman with underlying history of early onset dementia admitted with altered mental status 1. Acute encephalopathy ? Etiology not clear at this point patient however tested positive for COVID admitted to regular nursing floor for further management. Patient had CT of the head obtained was negative -06/26/2021; Patient much more awake compared to previous day however still remains delirious -06/27/2021; Level of sensorium improved 2. Acute COVID infection ? Patient admitted for symptomatic treatment currently not requiring oxygen therefore not a candidate for Decadron moreover onset of symptoms not known ruling him out for remdesivir -Patient had to be placed on supplemental oxygen resulting in patient being initiated on Decadron. He was also found to have elevated D-dimer, CTA of the chest was negative for PE he was however found to have bilateral pneumonia. Decadron initiated. Also did start superimposed antibiotic therapy 3. Acute rhabdomyolysis Due to prolonged period of immobilization on fluids with monitoring of CPK levels -06/27/2021. CK levels trending down 5. Thrombocytopenia ? 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 Patient had been started on Lovenox on admission discontinued due to further drop in platelet counts level -06/27/2021 platelet count; 98 6. Early onset dementia ? Patient is on donepezil discontinue in addition to supportive care 7. History of thyroidectomy ? On account of toxic multinodular goiter. Patient is on replacement therapy with levothyroxine did order for TSH 8. DVT prophylaxis ? SCDs only in view of above 9. Hypocalcemia -Multifactorial including possibly low oral intake as well as hypoalbuminemia. Corrected calcium for the low albumin 7.6. Ordered ionized calcium patient placed on supplemental calcium ? ? CODE STATUS unverifiable at this point Charges/Coding Visit Charges Inpatient E&M: 66299 Subs Hosp L3
[2021-06-27 07:40] LABS: Absolute Lymphocyte Count 1.17 X10^3/uL (0.83-4.51); Basophil# 0.01 X10^3/uL; Basophil% 0.1 % (0-1); Eosinophil# 0.19 X10^3/uL; Eosinophils% 2.3 % (0-5); Hematocrit 42.6 % (40-54); Lymphocyte # 1.17 X10^3/ul (0.83-4.51); Lymphocyte % 14.2 % (19-41); Mean Corp Hgb Conc 32.9 g/dL (32-36); Mean Corpuscular Hgb 29.2 pg (27.0-32.0); Mean Corpuscular Volume 88.9 fL (80-94); Mean Platelet Vol. 11.4 fl (6.2-12.0); Monocyte# 0.78 X10^3/uL; Monocyte% 9.5 % (0-10); NRBC Flagged by Analyzer 0 % (0-5); Neutrophil # 6.02 X10^3/uL (2.7-7.7); Neutrophil % 72.9 % (47-70); POSITIVE COUNT YES; Platelet Count 98 K/mm3 (150-450); RBC Distribution Width CV 13.8 % (11.6-14.6); Red Blood Count 4.79 M/mm3 (4.6-6.2); White Blood Count 8.3 K/mm3 (4.4-11.0)
[2021-06-27] MEDS: Donepezil HCl 10 MG Tablet PO (07:48)
[2021-06-27] MEDS: Menthol/Lanolin/Calamine/Znox 113 GM Tube 1 APPLIC TOPICAL ×2 (07:48→20:42)
[2021-06-27] MEDS: Levothyroxine 175 MCG Tablet PO (07:48)
[2021-06-27] MEDS: Ceftriaxone 1 GM/50 ML BAG IV (07:50)
[2021-06-27] MEDS: dexAMETHasone 10 MG/ML Vial 6 MG IV (07:52)
[2021-06-27 08:14] LABS: CPK Total, Creatine Kinase 219 U/L (39-308)
[2021-06-27 08:15] LABS: ALB/GLOB Ratio 0.6 RATIO (0.9-2.4); AST(SGOT) 29 U/L (15-37); Alanine Aminotransfer ALT/SGPT 22 U/L (16-61); Albumin, Serum 2.3 g/dL (3.2-5.0); Alkaline Phosphatase 40 U/L (45-117); Anion Gap 6 (5-15); BUN 20 mg/dL (7-18); BUN/Creat Ratio 25.2 RATIO (10-20); Calcium,Total 6.2 mg/dL (8.5-10.1); Chloride 109 mmol/L (98-107); EST Glomerular Filtration Rate 102 mL/min (>60); Est Glom Filt Rate - Afr Amer 124 mL/min (>60); Estimated Creatinine Clearance 88.72 ml/min; Globulin 3.9 g/dL (2.2-4.2); Glucose 90 mg/dL (74-106); Potassium 3.7 mmol/L (3.5-5.1); Protein, Total 6.2 g/dL (6.4-8.2); Sodium Level 142 mmol/L (136-145)
--- NOTE | 2021-06-27 08:51 | PCS.PANDOC ---
PANDEMIC DOCUMENTATION INITIATED: Date: 01/25/2021 Time: 190
[2021-06-27] MEDS: Calcium (Elemental) 500 MG Tablet PO ×2 (11:56→15:58)
[2021-06-27] MEDS: MELATONIN 3 MG TABLET PO (20:22)
[2021-06-28] VITALS (19 sets, daily range): BP systolic 103–148; BP diastolic 50–93; PULSE 61–88; RESP 18–28; TEMP 36.6–39.3; O2SAT 90–99
[2021-06-28] MEDS: Acetaminophen 325 MG Tablet 650 MG PO (01:14)
[2021-06-28] MEDS: Albuterol 2.5 MG/3 ML VIAL.NEB. INHALATION ×2 (02:10→07:16)
[2021-06-28 06:37] LABS: Absolute Lymphocyte Count 0.79 X10^3/uL (0.83-4.51); Absolute Neutrophil Count 5.3 X10^3/uL (2.0-7.7); Basophil# 0.01 X10^3/uL; Basophil% 0.1 % (0-1); Hematocrit 43.8 % (40-54); Hemoglobin 14.3 g/dL (13.0-16.5); Lymphocyte # 0.79 X10^3/ul (0.83-4.51); Lymphocyte % 11.7 % (19-41); Mean Corp Hgb Conc 32.6 g/dL (32-36); Mean Corpuscular Hgb 29.4 pg (27.0-32.0); Mean Corpuscular Volume 89.9 fL (80-94); Mean Platelet Vol. 11.2 fl (6.2-12.0); Monocyte# 0.66 X10^3/uL; Monocyte% 9.8 % (0-10); NRBC Flagged by Analyzer 0 % (0-5); Neutrophil # 5.26 X10^3/uL (2.7-7.7); Platelet Count 109 K/mm3 (150-450); RBC Distribution Width CV 13.7 % (11.6-14.6); RBC Distribution Width SD 45.8 fl (35.1-43.9); Red Blood Count 4.87 M/mm3 (4.6-6.2); White Blood Count 6.8 K/mm3 (4.4-11.0)
[2021-06-28 07:06] LABS: ALB/GLOB Ratio 0.6 RATIO (0.9-2.4); AST(SGOT) 31 U/L (15-37); Alanine Aminotransfer ALT/SGPT 24 U/L (16-61); Albumin, Serum 2.5 g/dL (3.2-5.0); Alkaline Phosphatase 38 U/L (45-117); Anion Gap 8 (5-15); BUN 21 mg/dL (7-18); BUN/Creat Ratio 21.8 RATIO (10-20); Calcium,Total 6.6 mg/dL (8.5-10.1); Chloride 109 mmol/L (98-107); Creatinine, Serum 0.96 mg/dL (0.70-1.30); EST Glomerular Filtration Rate 82 mL/min (>60); Est Glom Filt Rate - Afr Amer 99 mL/min (>60); Estimated Creatinine Clearance 73.93 ml/min; Globulin 3.9 g/dL (2.2-4.2); Glucose 88 mg/dL (74-106); Potassium 3.4 mmol/L (3.5-5.1); Protein, Total 6.4 g/dL (6.4-8.2); Sodium Level 142 mmol/L (136-145)
[2021-06-28 07:11] LABS: CPK Total, Creatine Kinase 177 U/L (39-308)
[2021-06-28] MEDS: Furosemide 40 MG/4 ML Vial IV (07:15)
[2021-06-28] MEDS: Menthol/Lanolin/Calamine/Znox 113 GM Tube 1 APPLIC TOPICAL ×2 (09:21→19:59)
[2021-06-28] MEDS: Ceftriaxone 1 GM/50 ML BAG IV (09:22)
[2021-06-28] MEDS: dexAMETHasone 10 MG/ML Vial 6 MG IV (09:25)
[2021-06-28] MEDS: Levothyroxine 175 MCG Tablet PO (09:26)
--- NOTE | 2021-06-28 10:30 | CASEMGMT ---
Social Work Note FELICITAS received call from pt's DIL Radha to discuss SNF for pt. SW reviewed chart. SW informed Radha that since pt is COVID+ there are limited SNF that will accept pt. SW informed Radha that the only SNF in [facility] accepting COVID+ pt's is [facility] in [place]. Radha states pt needs SNF as pt has been delirious lately. Radha states pt's brother was checking in with pt and she and her (pt's son) was also checking in with pt. Radha states that when they checked on pt the other day, pt had cockroaches and hoarding food in his home. Radha states pt has two sons and the only son who is involved in pt's care is pt's son Kaveh, Radha's . Radha states that Sacha is aware she is talking to this worker about SNF. SW informed Radha that this worker will need to speak to pt to let him know about SNF recommendation. Radha states that she and Sacha are agreeable to [facility] SNF in [place]. FELICITAS explained referral process. SW to follow up with [facility] SNF in regards to pt. Plan: SNF pending acceptance and pre-cert Mayra Bernstein UPPER AND BOTTOM LACER HAND, SCRUB NURSE
--- NOTE | 2021-06-28 11:00 | PCM.PN.HOSP ---
Subjective Subjective Still appears to be a little bit confused. He is unable to have a conversation with me this morning. In discussing this with the nurse, the family states that he has never demonstrated confusion until about a day or 2 before admission. This could just be a sort of mild dementia that in the setting of COVID progressed to delirium Objective Data Objective Data Vital Signs: Vital Signs Temp Pulse Resp BP Pulse Ox 99.1 F 88 24 H 131/73 H 95 06/28/21 09:13 06/28/21 09:13 06/28/21 09:13 06/28/21 09:13 06/28/21 09:13 Oxygen Flow Rate (L/min) 4 Oxygen Delivery Method Nasal Cannula Weight: 233 lb 0.458 oz Body Mass Index (BMI) 33.4 Intake & Output: Intake and Output for Last 24 Hours 06/27/21 06/28/21 06/29/21 03:59 03:59 03:59 Intake Total 3330.00 / 3330.00 3213.33 / 3213.33 50 / 50 Output Total 1200 / 1200 1100 / 1100 150 / 150 Balance 2130.00 / 2130.00 2113.33 / 2113.33 -100 / -100 Lab / Micro Data Result Diagrams: 06/28/21 06:20 06/28/21 06:20 Labs: Laboratory Results - last 24 hr 06/28/21 06:20: WBC 6.8, RBC 4.87, Hgb 14.3, Hct 43.8, MCV 89.9, MCH 29.4, MCHC 32.6, RDW Std Deviation 45.8 H, RDW Coeff of Evette 13.7, Plt Count 109 L, MPV 11.2, Immature Gran % (Auto) 0.400, Neut % (Auto) 78.0 H, Lymph % (Auto) 11.7 L, [place] % (Auto) 9.8, Eos % (Auto) 0.0, Baso % (Auto) 0.1, Absolute Neuts (auto) 5.3, Absolute Lymphs (auto) 0.79 L, Nucleated RBC % 0 06/28/21 06:20: Sodium 142, Potassium 3.4 L, Chloride 109 H, Carbon Dioxide 25.0, Anion Gap 8, BUN 21 H, Creatinine 0.96, Estim Creat Clear Calc 73.93, Est GFR (MDRD) Af Amer 99, Est GFR (MDRD) Non-Af 82, BUN/Creatinine Ratio 21.8 H, Glucose 88, Calcium 6.6 L, Total Bilirubin 0.70, AST 31, ALT 24, Alkaline Phosphatase 38 L, Total Protein 6.4, Albumin 2.5 L, Globulin 3.9, Albumin/Globulin Ratio 0.6 L 06/28/21 06:20: Total Creatine Kinase 177 Micro: Microbiology 06/25/21 16:10 Blood Culture (Wb) - Left Hand Blood Culture - Preliminary No growth in 48 hours. 06/25/21 17:20 Urine Catheter - [place] Urine Culture - Final Culture exhibits no growth. 06/25/21 16:40 Blood Culture (Wb) - Right Hand Bacteria Detection (PCR) - Final 06/25/21 16:40 Blood Culture (Wb) - Right Hand Blood Culture - Preliminary 06/25/21 23:00 Urine, Random Legionella Antigen - Final 06/25/21 23:00 Urine Catheter - [place] Streptococcus pneumoniae Antigen (M - Final 06/25/21 17:00 Nasal Secretion SARS-CoV-2 Antigen (Rapid) - Final SARS-CoV-2 (COVID 19) Physical Exam Const alert and no apparent distress General Appearance: cooperative HEENT normocephalic and moist oral mucous membranes Eyes PERRL, EOMs intact bilaterally and conjunctivae normal Neck supple and no JVD Resp normal respiratory effort, no retractions and no use of accessory muscles Auscultation: diminished lung sounds; Negative for crackles, rales, rhonchi or wheezes Cardio regular rate, regular rhythm, S1 normal heart sound, S2 normal heart sound and no murmurs GI soft to palpation, non-tender and non-distended; Negative for hepatosplenomegaly Extremity no clubbing, cyanosis or edema Skin no rashes or lesions noted Neuro no focal motor deficits and no sensory deficits noted Psych affect normal Appearance: appropriate Assessment & Plan Assessment/Plan (1) COVID-19 virus infection: (2) Infectious encephalopathy: PLAN: 1. Acute encephalopathy/hypocalcemia ? Etiology not clear at this point patient however tested positive for COVID admitted to regular nursing floor for further management. Patient had CT of the head obtained was negative -06/26/2021; Patient much more awake compared to previous day however still remains delirious -06/27/2021; Level of sensorium improved ?06/28/2021: Continues to be confused, calcium is still low and even with adjustment with his albumin he is still low, continue to calcium carbonate and will check a phosphorus and magnesium today 2. Acute COVID infection ? Patient admitted for symptomatic treatment currently not requiring oxygen therefore not a candidate for Decadron moreover onset of symptoms not known ruling him out for remdesivir -Patient had to be placed on supplemental oxygen resulting in patient being initiated on Decadron. He was also found to have elevated D-dimer, CTA of the chest was negative for PE he was however found to have bilateral pneumonia. Decadron initiated. Also did start superimposed antibiotic therapy 3. Acute rhabdomyolysis Due to prolonged period of immobilization on fluids with monitoring of CPK levels -06/27/2021. CK levels trending down 4. Thrombocytopenia ? 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 Patient had been started on Lovenox on admission discontinued due to further drop in platelet counts level -06/27/2021 platelet count; 98 5. Early onset dementia ? Patient is on donepezil discontinue in addition to supportive care 6. History of thyroidectomy ? On account of toxic multinodular goiter. Patient is on replacement therapy with levothyroxine did order for TSH DVT: SCDs Charges/Coding Visit Charges Inpatient E&M: 22657 Subs Hosp L2
[2021-06-28 12:49] LABS: Magnesium 2.2 mg/dL (1.6-2.6); Phosphorus 2.5 mg/dL (2.5-4.9)
--- NOTE | 2021-06-28 12:50 | CASEMGMT ---
Social Work Note SW received update from Arpita at [facility] that they are no longer taking out of network insurances for COVID+ pt's. Pt has [facility] Medicare insurnace, which is out of network with [facility]. SW searched [employer]'s website and searched 100 mile radius from [place], [place] and only 3 SNF showed up that acccept pt's insurance and are accepting COVID+ pt's. Those SNF are [facility] in [place], [place], [facility] in [place], and [facility]. SW to call SNF's to inquire about bed availability. SW to continue to follow. Plan: SNF pending acceptance and pre-cert Mayra Bernstein SPEECH CORRECTION ASSISTANT, COMPUTATIONAL MATHEMATICIAN
--- NOTE | 2021-06-28 16:24 | CASEMGMT ---
Social Work Note SW updated that at this time, [facility] in [place] ( , ) has availability and [facility] ( , ) has bed availability. SW will reach out to pt's family tomorrow to discuss SNF options. Mayra Bernstein RESTAURANT ASSOCIATE, WARPER CREELER
[2021-06-28] MEDS: 0.9% Saline Lock 10 ML Syringe IV (20:00)
[2021-06-29] VITALS (7 sets, daily range): BP systolic 106–155; BP diastolic 67–84; PULSE 60–82; RESP 16–20; TEMP 36.2–37.3; O2SAT 90–93
--- NOTE | 2021-06-29 04:40 | NURSING ---
pt refusing am labs
[2021-06-29] MEDS: Albuterol 2.5 MG/3 ML VIAL.NEB. INHALATION (09:43)
--- NOTE | 2021-06-29 10:07 | CASEMGMT ---
Addendum entered by Mayra Bernstein 06/29/21 11:24: FELICITAS received update from Arpita at [facility] stating they could try a one time contract with [facility] but states they typically do not approve one time contracts with them since they are out of network. SW will discuss with pt's family. Original Note: Social Work Note SW asked Arpita at [facility] if they would consider trying one time contract with pt's [employer] for SNF placement. SW waiting for response from Arpita at [facility]. Plan: SNF pending acceptance and pre-cert Mayra Bernstein REGIONAL SERVICE MANAGER, LIFE GUARD
[2021-06-29] MEDS: Ceftriaxone 1 GM/50 ML BAG IV (10:09)
[2021-06-29] MEDS: dexAMETHasone 10 MG/ML Vial 6 MG IV (10:12)
[2021-06-29] MEDS: Menthol/Lanolin/Calamine/Znox 113 GM Tube 1 APPLIC TOPICAL ×2 (10:14→21:21)
--- NOTE | 2021-06-29 13:00 | PN.HOSP_ITS ---
Subjective Subjective Continues to be confused and noncommunicative as to how he is feeling. His calcium still remains low and it was observed today that he has not been getting the calcium carbonate replacement as he has been refusing it therefore we will proceed with calcium gluconate IV. Objective Data Objective Data Vital Signs: Vital Signs Temp Pulse Resp BP Pulse Ox 97.9 F 77 18 149/78 H 93 06/29/21 10:02 06/29/21 10:02 06/29/21 10:02 06/29/21 10:02 06/29/21 10:02 Oxygen Flow Rate (L/min) 2 Oxygen Delivery Method Room Air Weight: 233 lb 0.458 oz Body Mass Index (BMI) 33.4 Intake & Output: Intake and Output for Last 24 Hours 06/28/21 06/29/21 06/30/21 03:59 03:59 03:59 Intake Total 3213.33 / 3213.33 305 / 305 50 / 50 Output Total 1100 / 1100 1825 / 1825 Balance 2113.33 / 2113.33 -1520 / -1520 50 / 50 Lab / Micro Data Result Diagrams: 06/28/21 06:20 06/28/21 06:20 Micro: Microbiology 06/25/21 16:40 Blood Culture (Wb) - Right Hand Bacteria Detection (PCR) - Final 06/25/21 16:40 Blood Culture (Wb) - Right Hand Blood Culture - Preliminary Presumptive Micrococcus spp. 06/25/21 16:10 Blood Culture (Wb) - Left Hand Blood Culture - Preliminary No growth in 48 hours. 06/25/21 17:20 Urine Catheter - [place] Urine Culture - Final Culture exhibits no growth. 06/25/21 23:00 Urine, Random Legionella Antigen - Final 06/25/21 23:00 Urine Catheter - [place] Streptococcus pneumoniae Antigen (M - Final 06/25/21 17:00 Nasal Secretion SARS-CoV-2 Antigen (Rapid) - Final SARS-CoV-2 (COVID 19) Physical Exam Narrative Const alert and no apparent distress General Appearance: cooperative HEENT normocephalic and moist oral mucous membranes Eyes PERRL, EOMs intact bilaterally and conjunctivae normal Neck supple and no JVD Resp normal respiratory effort, no retractions and no use of accessory muscles Auscultation: diminished lung sounds; Negative for crackles, rales, rhonchi or wheezes Cardio regular rate, regular rhythm, S1 normal heart sound, S2 normal heart sound and no murmurs GI soft to palpation, non-tender and non-distended; Negative for hepatosplenomegaly Extremity no clubbing, cyanosis or edema Skin no rashes or lesions noted Neuro no focal motor deficits and no sensory deficits noted Psych affect normal Appearance: appropriate Assessment & Plan Assessment/Plan (1) COVID-19 virus infection: (2) Infectious encephalopathy: PLAN: 1. Acute encephalopathy/hypocalcemia ? Etiology not clear at this point patient however tested positive for COVID admitted to regular nursing floor for further management. Patient had CT of the head obtained was negative -06/26/2021; Patient much more awake compared to previous day however still remains delirious -06/27/2021; Level of sensorium improved ?06/28/2021: Continues to be confused, calcium is still low and even with adjustment with his albumin he is still low, continue to calcium carbonate and will check a phosphorus and magnesium today ? 06/29/2021: He remains confused, with albumin correction his calcium is actually low and he has been refusing his calcium carbonate therefore we will discontinue these and place him on calcium gluconate. Ionized calcium is still pending and this will take some time 2. Acute COVID infection ? Patient admitted for symptomatic treatment currently not requiring oxygen therefore not a candidate for Decadron moreover onset of symptoms not known ruling him out for remdesivir -Patient had to be placed on supplemental oxygen resulting in patient being initiated on Decadron. He was also found to have elevated D-dimer, CTA of the chest was negative for PE he was however found to have bilateral pneumonia. De cadron initiated. Also did start superimposed antibiotic therapy ? 06/29/2021: Difficulty in getting him to keep his oxygen on, however on room air he does appear to be at around 91 to 92%. He is still very confused therefore disposition is still difficult to ascertain. 3. Acute rhabdomyolysis Due to prolonged period of immobilization on fluids with monitoring of CPK levels -06/27/2021. CK levels trending down 4. Thrombocytopenia ? 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 Patient had been started on Lovenox on admission discontinued due to further drop in platelet counts level -06/27/2021 platelet count; 98 ? 06/28/2021: Platelet count is now 109 5. Early onset dementia ? Patient is on donepezil will continue in addition to supportive care 6. History of thyroidectomy ? On account of toxic multinodular goiter. Patient is on replacement therapy with levothyroxine did order for TSH DVT: SCDs Charges/Coding Visit Charges Inpatient E&M: 14686 Subs Hosp L2
--- NOTE | 2021-06-29 14:07 | CASEMGMT ---
Social Work Note SW attempted to call both pt's son Sacha and pt's CHUCK Garcia to discuss SNF, no answer. SW left message requesting call back. SW waiting for call back. Plan: SNF pending acceptance and pre-cert Mayra Bernstein EMISSION SPECIALIST, ACADEMIC ADVISER
--- NOTE | 2021-06-29 15:33 | CASEMGMT ---
Social Work Note FELICITAS received call from pt's DIL Radha. FELICITAS updated Radha that the only SNF in [facility], [facility], is not in network with pt's insurance, and pt's insurance will not likely approve one time contract. FELICITAS informed Radha that the only two SNF that accept pt's insurance and are taking COVID+ pt's are [facility] in [place] and [facility]. Radha states to try [facility]. Radha with many questions regarding SNF, Short term Rehab, terminologist Rehab, Assisted Living, [facility], etc. SW answered Radha's questions. FELICITAS informed Radha that this worker will send referral to [facility], will keep Radha updated. Radha states understanding. FELICITAS placed a call to [facility] and spoke with Vera. FELICITAS provided referral to Vera. FELICITAS faxed referral. Plan: SNF pending acceptance and pre-cert Mayra Bernstein PHYSICIAN OFFICE SECRETARY, FIBRE COMPOSITE TECHNICIAN
[2021-06-30] VITALS (12 sets, daily range): BP systolic 107–145; BP diastolic 58–76; PULSE 55–73; RESP 18–22; TEMP 36.3–37.2; O2SAT 84–92
[2021-06-30 06:41] LABS: Absolute Lymphocyte Count 0.77 X10^3/uL (0.83-4.51); Absolute Neutrophil Count 5.3 X10^3/uL (2.0-7.7); Basophil# 0.01 X10^3/uL; Basophil% 0.1 % (0-1); Hematocrit 45.6 % (40-54); Hemoglobin 14.8 g/dL (13.0-16.5); Lymphocyte # 0.77 X10^3/ul (0.83-4.51); Lymphocyte % 11.4 % (19-41); Mean Corp Hgb Conc 32.5 g/dL (32-36); Mean Corpuscular Hgb 28.8 pg (27.0-32.0); Mean Corpuscular Volume 88.9 fL (80-94); Mean Platelet Vol. 11.2 fl (6.2-12.0); Monocyte# 0.59 X10^3/uL; Monocyte% 8.8 % (0-10); NRBC Flagged by Analyzer 0 % (0-5); Neutrophil # 5.33 X10^3/uL (2.7-7.7); Neutrophil % 79.1 % (47-70); Platelet Count 127 K/mm3 (150-450); RBC Distribution Width CV 13.7 % (11.6-14.6); RBC Distribution Width SD 44.6 fl (35.1-43.9); Red Blood Count 5.13 M/mm3 (4.6-6.2); White Blood Count 6.7 K/mm3 (4.4-11.0)
[2021-06-30 07:03] LABS: ALB/GLOB Ratio 0.5 RATIO (0.9-2.4); AST(SGOT) 44 U/L (15-37); Alanine Aminotransfer ALT/SGPT 32 U/L (16-61); Albumin, Serum 2.4 g/dL (3.2-5.0); Alkaline Phosphatase 41 U/L (45-117); Anion Gap 8 (5-15); BUN 23 mg/dL (7-18); BUN/Creat Ratio 25.9 RATIO (10-20); Calcium,Total 6.9 mg/dL (8.5-10.1); Chloride 104 mmol/L (98-107); Creatinine, Serum 0.89 mg/dL (0.70-1.30); EST Glomerular Filtration Rate 90 mL/min (>60); Est Glom Filt Rate - Afr Amer 109 mL/min (>60); Estimated Creatinine Clearance 79.74 ml/min; Globulin 4.5 g/dL (2.2-4.2); Glucose 86 mg/dL (74-106); Potassium 3.3 mmol/L (3.5-5.1); Protein, Total 6.9 g/dL (6.4-8.2); Sodium Level 142 mmol/L (136-145)
--- NOTE | 2021-06-30 09:12 | PN.HOSP_ITS ---
Subjective Subjective Still confused and refused to wear his oxygen. Ionized calcium did come back low and since he is not taking his p.o. calcium replacement have transition him to IV calcium Objective Data Objective Data Vital Signs: Vital Signs Temp Pulse Resp BP Pulse Ox 98 F 68 18 145/70 H 92 06/30/21 03:15 06/30/21 03:15 06/30/21 03:15 06/30/21 03:15 06/30/21 08:27 Oxygen Flow Rate (L/min) 2 Oxygen Delivery Method Room Air Weight: 233 lb 0.458 oz Body Mass Index (BMI) 33.4 Intake & Output: Intake and Output for Last 24 Hours 06/29/21 06/30/21 07/01/21 03:59 03:59 03:59 Intake Total 305 / 305 170 / 170 Output Total 1825 / 1825 325 / 325 Balance -1520 / -1520 -155 / -155 Lab / Micro Data Result Diagrams: 06/30/21 06:17 06/30/21 06:17 Labs: Laboratory Results - last 24 hr 06/27/21 11:55: Ionized Calcium 3.5 L 06/30/21 06:17: WBC 6.7, RBC 5.13, Hgb 14.8, Hct 45.6, MCV 88.9, MCH 28.8, MCHC 32.5, RDW Std Deviation 44.6 H, RDW Coeff of Evette 13.7, Plt Count 127 L, MPV 11.2, Immature Gran % (Auto) 0.600, Neut % (Auto) 79.1 H, Lymph % (Auto) 11.4 L, Haskell % (Auto) 8.8, Eos % (Auto) 0.0, Baso % (Auto) 0.1, Absolute Neuts (auto) 5.3, Absolute Lymphs (auto) 0.77 L, Nucleated RBC % 0 06/30/21 06:17: Sodium 142, Potassium 3.3 L, Chloride 104, Carbon Dioxide 30.0, Anion Gap 8, BUN 23 H, Creatinine 0.89, Estim Creat Clear Calc 79.74, Est GFR (MDRD) Af Amer 109, Est GFR (MDRD) Non-Af 90, BUN/Creatinine Ratio 25.9 H, Glucose 86, Calcium 6.9 L, Total Bilirubin 0.80, AST 44 H, ALT 32, Alkaline Phosphatase 41 L, Total Protein 6.9, Albumin 2.4 L, Globulin 4.5 H, Albumin/Globulin Ratio 0.5 L Micro: Microbiology 06/25/21 16:40 Blood Culture (Wb) - Right Hand Bacteria Detection (PCR) - Final 06/25/21 16:40 Blood Culture (Wb) - Right Hand Blood Culture - Preliminary Presumptive Micrococcus spp. 06/25/21 16:10 Blood Culture (Wb) - Left Hand Blood Culture - Preliminary No growth in 48 hours. 06/25/21 17:20 Urine Catheter - [place] Urine Culture - Final Culture exhibits no growth. 06/25/21 23:00 Urine, Random Legionella Antigen - Final 06/25/21 23:00 Urine Catheter - [place] Streptococcus pneumoniae Antigen (M - Final 06/25/21 17:00 Nasal Secretion SARS-CoV-2 Antigen (Rapid) - Final SARS-CoV-2 (COVID 19) Physical Exam Narrative Const alert and no apparent distress General Appearance: uncooperative HEENT normocephalic and moist oral mucous membranes Eyes PERRL, EOMs intact bilaterally and conjunctivae normal Neck supple and no JVD Resp normal respiratory effort, no retractions and no use of accessory muscles Auscultation: diminished lung sounds; Negative for crackles, rales, rhonchi or wheezes Cardio regular rate, regular rhythm, S1 normal heart sound, S2 normal heart sound and no murmurs GI soft to palpation, non-tender and non-distended; Negative for hepatosplenomegaly Extremity no clubbing, cyanosis or edema Skin no rashes or lesions noted Neuro no focal motor deficits and no sensory deficits noted Psych Flat affect Appearance: appropriate Assessment & Plan Assessment/Plan (1) COVID-19 virus infection: (2) Infectious encephalopathy: PLAN: 1. Acute encephalopathy/hypocalcemia ? Etiology not clear at this point patient however tested positive for COVID admitted to regular nursing floor for further management. Patient had CT of the head obtained was negative -06/26/2021; Patient much more awake compared to previous day however still remains delirious -06/27/2021; Level of sensorium improved ?06/28/2021: Continues to be confused, calcium is still low and even with adjustment with his albumin he is still low, continue to calcium carbonate and will check a phosphorus and magnesium today ? 06/29/2021: He remains confused, with albumin correction his calcium is actually low and he has been refusing his calcium carbonate therefore we will discontinue these and place him on calcium gluconate. Ionized calcium is still pending and this will take some time ? 06/30/2021: Continue with IV calcium replacement, will also replace his potassium today 2. Acute COVID infection ? Patient admitted for symptomatic treatment currently not requiring oxygen therefore not a candidate for Decadron moreover onset of symptoms not known ruling him out for remdesivir -Patient had to be placed on supplemental oxygen resulting in patient being initiated on Decadron. He was also found to have elevated D-dimer, CTA of the chest was negative for PE he was however found to have bilateral pneumonia. Decadron initiated. Also did start superimposed antibiotic therapy ? 06/29/2021: Difficulty in getting him to keep his oxygen on, however on room air he does appear to be at around 91 to 92%. He is still very confused therefo re disposition is still difficult to ascertain. ? 06/30/2021: Refused to wear his oxygen he is currently satting 90 to 92% on room air 3. Acute rhabdomyolysis Due to prolonged period of immobilization on fluids with monitoring of CPK levels -06/27/2021. CK levels trending down 4. Thrombocytopenia ? 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 Patient had been started on Lovenox on admission discontinued due to further drop in platelet counts level -06/27/2021 platelet count; 98 ? 06/28/2021: Platelet count is now 109 5. Early onset dementia ? Patient is on donepezil will continue in addition to supportive care 6. History of thyroidectomy ? On account of toxic multinodular goiter. Patient is on replacement therapy with levothyroxine did order for TSH DVT: SCDs Charges/Coding Visit Charges Inpatient E&M: 88046 Subs Hosp L2
--- NOTE | 2021-06-30 09:27 | CASEMGMT ---
Social Work Note SW placed a call to [facility] and spoke with Ally. Ally states they are reviewing pt's referral. Ally with additional questions regarding pt. FELICITAS answered questions. Ally states she will call this worker back with determination. FELICITAS waiting for call back from Ally. Plan: SNF pending acceptance and pre-cert Mayra Bernstein UNIT SUPERVISOR, INTERLOCKING AND SIGNAL MECHANIC
--- NOTE | 2021-06-30 09:50 | NURSING ---
pt agitated when temp being taken, prior to therapy pt refuses to have NC oxygen place and sats range from 88-90%. during therapy spo2 down to 83% pt refuses oxygen and keeps shaking head, pulling it off.
[2021-06-30] MEDS: Ceftriaxone 1 GM/50 ML BAG IV (09:53)
[2021-06-30] MEDS: dexAMETHasone 10 MG/ML Vial 6 MG IV (09:53)
[2021-06-30] MEDS: 0.9% Saline Lock 10 ML Syringe IV (09:54)
--- NOTE | 2021-06-30 09:59 | NURSING ---
multiple attempts to communicate: verbally + written + demonstration/visual of requests- pt refuses oxygen refuses to take any medications.
--- NOTE | 2021-06-30 10:55 | CASEMGMT ---
Social Work Note SW received call from Ally AGOSTO at [facility] stating they are not able to accept pt. The other SNF that takes pt's insurance and takes COVID+ pt [facility] in [place]. SW placed a call to [facility] and spoke with admissions, they do have beds available on their COVID unit and would be willing to review referral. SW will speak with pt's family. Plan: SNF pending acceptance and pre-cert Mayra Bernstein PORTABLE TRACK CREW CHIEF, HVAC ENGINEERING TECHNICIAN
[2021-06-30] MEDS: Potassium Chloride 10mEq/100mL 10 MEQ/100 ML IV.SOLN. 100 MEQ IV BOLUS ×4 (13:43→19:07)
--- NOTE | 2021-06-30 13:48 | NURSING ---
when pt awakened for bp- pt continues to refuse oxygen- turning his head away multiple times and raising his arms. oxygen left off. talking face to face with Radha in lounge.
[2021-07-01] VITALS (10 sets, daily range): BP systolic 126–153; BP diastolic 57–89; PULSE 59–76; RESP 18–24; TEMP 36.7–37.7; O2SAT 87–93
[2021-07-01 06:42] LABS: Absolute Neutrophil Count 4.7 X10^3/uL (2.0-7.7); Basophil# 0.01 X10^3/uL; Basophil% 0.2 % (0-1); Hematocrit 45.4 % (40-54); Hemoglobin 14.8 g/dL (13.0-16.5); Lymphocyte % 13.1 % (19-41); Mean Corp Hgb Conc 32.6 g/dL (32-36); Mean Corpuscular Volume 88.8 fL (80-94); Mean Platelet Vol. 11.5 fl (6.2-12.0); Monocyte# 0.52 X10^3/uL; Monocyte% 8.5 % (0-10); NRBC Flagged by Analyzer 0 % (0-5); Neutrophil # 4.73 X10^3/uL (2.7-7.7); Neutrophil % 77.5 % (47-70); Platelet Count 149 K/mm3 (150-450); RBC Distribution Width CV 13.5 % (11.6-14.6); RBC Distribution Width SD 44.3 fl (35.1-43.9); Red Blood Count 5.11 M/mm3 (4.6-6.2); White Blood Count 6.1 K/mm3 (4.4-11.0)
[2021-07-01 07:02] LABS: Anion Gap 6 (5-15); BUN 24 mg/dL (7-18); BUN/Creat Ratio 30.6 RATIO (10-20); Calcium,Total 7.3 mg/dL (8.5-10.1); Chloride 106 mmol/L (98-107); Creatinine, Serum 0.78 mg/dL (0.70-1.30); EST Glomerular Filtration Rate 104 mL/min (>60); Est Glom Filt Rate - Afr Amer 126 mL/min (>60); Estimated Creatinine Clearance 70.97 ml/min; Glucose 75 mg/dL (74-106); Potassium 3.4 mmol/L (3.5-5.1); Sodium Level 141 mmol/L (136-145)
--- NOTE | 2021-07-01 09:16 | NURSING ---
spo2 ranges from 87%- 91% on room air. pt refuses to have nasal cannula oxygen placed. pushes staff arms/hands away, turns head away from nurse and shakes head in no fashion. unable to attempt any further oxygen requirements d/t pt dementia/lack of cooperation/participation.pt won't even allow nurse to readjust his pillow- pt stiffens up and pushes head down into pillow further.
[2021-07-01] MEDS: Ceftriaxone 1 GM/50 ML BAG IV (09:19)
[2021-07-01] MEDS: dexAMETHasone 10 MG/ML Vial 6 MG IV (09:19)
[2021-07-01] MEDS: 0.9% Saline Lock 10 ML Syringe IV (09:20)
--- NOTE | 2021-07-01 11:07 | PN.HOSP_ITS ---
Subjective Subjective Confused, disoriented, uncooperative. He refused to wear his oxygen Objective Data Objective Data Vital Signs: Vital Signs Temp Pulse Resp BP Pulse Ox 99.9 F H 76 20 H 130/71 H 87 07/01/21 09:13 07/01/21 09:13 07/01/21 09:13 07/01/21 09:13 07/01/21 09:13 Oxygen Flow Rate (L/min) 89 Oxygen Delivery Method Room Air Weight: 233 lb 0.458 oz Body Mass Index (BMI) 33.4 Intake & Output: Intake and Output for Last 24 Hours 06/30/21 07/01/21 07/02/21 03:59 03:59 03:59 Intake Total 170 / 170 570 / 570 0 / 0 Output Total 325 / 325 700 / 700 300 / 300 Balance -155 / -155 -130 / -130 -300 / -300 Lab / Micro Data Result Diagrams: 07/01/21 04:43 07/01/21 04:43 Labs: Laboratory Results - last 24 hr 07/01/21 04:43: WBC 6.1, RBC 5.11, Hgb 14.8, Hct 45.4, MCV 88.8, MCH 29.0, MCHC 32.6, RDW Std Deviation 44.3 H, RDW Coeff of Evette 13.5, Plt Count 149 L, MPV 11. 5, Immature Gran % (Auto) 0.700, Neut % (Auto) 77.5 H, Lymph % (Auto) 13.1 L, Saline % (Auto) 8.5, Eos % (Auto) 0.0, Baso % (Auto) 0.2, Absolute Neuts (auto) 4.7, Absolute Lymphs (auto) 0.80 L, Nucleated RBC % 0 07/01/21 04:43: Sodium 141, Potassium 3.4 L, Chloride 106, Carbon Dioxide 29.0, Anion Gap 6, BUN 24 H, Creatinine 0.78, Estim Creat Clear Calc 70.97, Est GFR (MDRD) Af Amer 126, Est GFR (MDRD) Non-Af 104, BUN/Creatinine Ratio 30.6 H, Glucose 75, Calcium 7.3 L Micro: Microbiology 06/25/21 16:40 Blood Culture (Wb) - Right Hand Bacteria Detection (PCR) - Final 06/25/21 16:40 Blood Culture (Wb) - Right Hand Blood Culture - Final Presumptive Micrococcus spp. 06/25/21 16:10 Blood Culture (Wb) - Left Hand Blood Culture - Final No growth in 5 days. 06/25/21 17:20 Urine Catheter - [place] Urine Culture - Final Culture exhibits no growth. 06/25/21 23:00 Urine, Random Legionella Antigen - Final 06/25/21 23:00 Urine Catheter - [place] Streptococcus pneumoniae Antigen (M - Final 06/25/21 17:00 Nasal Secretion SARS-CoV-2 Antigen (Rapid) - Final SARS-CoV-2 (COVID 19) Physical Exam Narrative Const alert and no apparent distress, confused General Appearance: uncooperative HEENT normocephalic and moist oral mucous membranes Eyes PERRL, EOMs intact bilaterally and conjunctivae normal Neck supple and no JVD Resp normal respiratory effort, no retractions and no use of accessory muscles Auscultation: diminished lung sounds; Negative for crackles, rales, rhonchi or wheezes Cardio regular rate, regular rhythm, S1 normal heart sound, S2 normal heart sound and no murmurs GI soft to palpation, non-tender and non-distended; Negative for hepatosplenomegaly Extremity no clubbing, cyanosis or edema Skin no rashes or lesions noted Neuro no focal motor deficits and no sensory deficits noted Psych Flat affect Appearance: appropriate Assessment & Plan Assessment/Plan (1) COVID-19 virus infection: (2) Infectious encephalopathy: PLAN: 1. Acute encephalopathy/hypocalcemia ? Etiology not clear at this point patient however tested positive for COVID admitted to regular nursing floor for further management. Patient had CT of the head obtained was negative -06/26/2021; Patient much more awake compared to previous day however still remains delirious -06/27/2021; Level of sensorium improved ?06/28/2021: Continues to be confused, calcium is still low and even with adjustment with his albumin he is still low, continue to calcium carbonate and will check a phosphorus and magnesium today ? 06/29/2021: He remains confused, with albumin correction his calcium is actually low and he has been refusing his calcium carbonate therefore we will d iscontinue these and place him on calcium gluconate. Ionized calcium is still pending and this will take some time ? 06/30/2021: Continue with IV calcium replacement, will also replace his potassium today ? 07/01/2021: Remains confused today, calcium is at 7.3 we will repeat a CMP in the morning and see if it corrects with albumin. Will replace potassium today. Still confused but this could just be delirium in the setting of his dementia secondary to COVID 2. Acute COVID infection ? Patient admitted for symptomatic treatment currently not requiring oxygen therefore not a candidate for Decadron moreover onset of symptoms not known ruling him out for remdesivir -Patient had to be placed on supplemental oxygen resulting in patient being initiated on Decadron. He was also found to have elevated D-dimer, CTA of the chest was negative for PE he was however found to have bilateral pneumonia. Decadron initiated. Also did start superimposed antibiotic therapy ? 06/29/2021: Difficulty in getting him to keep his oxygen on, however on room air he does appear to be at around 91 to 92%. He is still very confused therefore disposition is still difficult to ascertain. ? 06/30/2021: Refused to wear his oxygen he is currently satting 90 to 92% on room air ? 07/01/2021: Continues to refuse his oxygen and is anywhere between 88% to 90% on room air with occasional rises to 92% and occasional decreased to 86%. I did have a 45-minute discussion with the family on advance care planning. He is still currently a full code but we are evaluating potentially transitioning to a DNR CCA. Unfortunately he is too confused to go home and given his lack of compliance with oxygen he would likely just be sent back from any fdc he went to. We will continue to monitor 3. Acute rhabdomyolysis Due to prolonged period of immobilization on fluids with monitoring of CPK levels -06/27/2021. CK levels trending down 4. Thrombocytopenia ? 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 Patient had been started on Lovenox on admission discontinued due to further drop in platelet counts level -06/27/2021 platelet count; 98 ? 06/28/2021: Platelet count is now 109 5. Early onset dementia ? Patient is on donepezil will continue in addition to supportive care 6. History of thyroidectomy ? On account of toxic multinodular goiter. Patient is on replacement therapy with levothyroxine did order for TSH DVT: SCDs Charges/Coding Visit Charges Inpatient E&M: 55317 Subs Hosp L2 Procedures Hospitalists Procedures: 35010 Advncd Care Plan 30 Min
--- NOTE | 2021-07-01 17:38 | CASEMGMT ---
Social Work Note SW received call from pt's CM Kinjal Mariee at [facility]. Kinjal vrea pt was approved for Waiver Services on June 25. SW following for SNF pt. At this time, this worker is aware of only one SNF that will take pt's insurance and COVID+ pt which is [facility] in [place]. Pt currently not medically ready for discharge. SW will continue to facilitate SNF placement and will call additional SNF. Plan: SNF pending acceptance and pre-cert Mayra Bernstein RESIDENT PHYSICIAN, EDGE STAINER MACHINE
[2021-07-02] VITALS (8 sets, daily range): BP systolic 123–149; BP diastolic 60–105; PULSE 77–89; RESP 16–20; TEMP 36.7–37.7; O2SAT 84–96
--- NOTE | 2021-07-02 09:51 | CASEMGMT ---
Social Work Note SW placed a call to [facility] and left message for admissions to inquire if they accept COVID+ pt's 10 days after positive test. SW waiting for call back from [facility]. Plan: SNF pending acceptance and pre-cert Mayra Bernstein PANEL SAW OPERATOR, ELECTRICAL AUTOMATION ENGINEER
[2021-07-02] MEDS: Levothyroxine 175 MCG Tablet PO (09:52)
[2021-07-02] MEDS: Donepezil HCl 10 MG Tablet PO (09:52)
--- NOTE | 2021-07-02 10:00 | NURSING ---
crushed pills in pudding pt took this am
--- NOTE | 2021-07-02 10:01 | NURSING ---
placed NR mask by pt with o2 blow by to help with o2 sats
--- NOTE | 2021-07-02 11:21 | PN.HOSP_ITS ---
Subjective Subjective Still confused, doing some blow-by oxygen as he will keep the nasal cannula in his nose. When he sleeps he goes down to 84%. Family yesterday did agree to make him a DNR CCA without intubation Objective Data Objective Data Vital Signs: Vital Signs Temp Pulse Resp BP Pulse Ox 99.5 F H 77 18 149/72 H 92 07/02/21 08:10 07/02/21 08:10 07/02/21 08:10 07/02/21 08:10 07/02/21 10:04 Oxygen Flow Rate (L/min) 15 Oxygen Delivery Method Blow-by Weight: 233 lb 0.458 oz Body Mass Index (BMI) 33.4 Intake & Output: Intake and Output for Last 24 Hours 07/01/21 07/02/21 07/03/21 03:59 03:59 03:59 Intake Total 570 / 570 200 / 200 0 / 0 Output Total 700 / 700 1050 / 1050 300 / 300 Balance -130 / -130 -850 / -850 -300 / -300 Lab / Micro Data Result Diagrams: 07/01/21 04:43 07/01/21 04:43 Micro: Microbiology 06/25/21 16:40 Blood Culture (Wb) - Right Hand Bacteria Detection (PCR) - Final 06/25/21 16:40 Blood Culture (Wb) - Right Hand Blood Culture - Final Presumptive Micrococcus spp. 06/25/21 16:10 Blood Culture (Wb) - Left Hand Blood Culture - Final No growth in 5 days. 06/25/21 17:20 Urine Catheter - [place] Urine Culture - Final Culture exhibits no growth. 06/25/21 23:00 Urine, Random Legionella Antigen - Final 06/25/21 23:00 Urine Catheter - [place] Streptococcus pneumoniae Antigen (M - Final 06/25/21 17:00 Nasal Secretion SARS-CoV-2 Antigen (Rapid) - Final SARS-CoV-2 (COVID 19) Physical Exam Narrative Const alert and no apparent distress, confused General Appearance: uncooperative HEENT normocephalic and moist oral mucous membranes Eyes PERRL, EOMs intact bilaterally and conjunctivae normal Neck supple and no JVD Resp normal respiratory effort, no retractions and no use of accessory muscles Auscultation: diminished lung sounds; Negative for crackles, rales, rhonchi or wheezes Cardio regular rate, regular rhythm, S1 normal heart sound, S2 normal heart sound and no murmurs GI soft to palpation, non-tender and non-distended; Negative for hepatosplenomegaly Extremity no clubbing, cyanosis or edema Skin no rashes or lesions noted Neuro no focal motor deficits and no sensory deficits noted Psych Flat affect Assessment & Plan Assessment/Plan (1) COVID-19 virus infection: (2) Infectious encephalopathy: PLAN: 1. Acute encephalopathy/hypocalcemia ? Etiology not clear at this point patient however tested positive for COVID admitted to regular nursing floor for further management. Patient had CT of the head obtained was negative -06/26/2021; Patient much more awake compared to previous day however still remains delirious -06/27/2021; Level of sensorium improved ?06/28/2021: Continues to be confused, calcium is still low and even with adjustment with his albumin he is still low, continue to calcium carbonate and will check a phosphorus and magnesium today ? 06/29/2021: He remains confused, with albumin correction his calcium is actually low and he has been refusing his calcium carbonate therefore we will discontinue these and place him on calcium gluconate. Ionized calcium is still pending and this will take some time ? 06/30/2021: Continue with IV calcium replacement, will also replace his potassium today ? 07/01/2021: Remains confused today, calcium is at 7.3 we will repeat a CMP in the morning and see if it corrects with albumin. Will replace potassium today. Still confused but this could just be delirium in the setting of his dementia secondary to COVID ?07/02/2021: We will reattempt to get blood work today later in the afternoon may be he will be more agreeable at that time. 2. Acute COVID infection ? Patient admitted for symptomatic treatment currently not requiring oxygen therefore not a candidate for Decadron moreover onset of symptoms not known rul ing him out for remdesivir -Patient had to be placed on supplemental oxygen resulting in patient being initiated on Decadron. He was also found to have elevated D-dimer, CTA of the chest was negative for PE he was however found to have bilateral pneumonia. Decadron initiated. Also did start superimposed antibiotic therapy ? 06/29/2021: Difficulty in getting him to keep his oxygen on, however on room air he does appear to be at around 91 to 92%. He is still very confused therefore disposition is still difficult to ascertain. ? 06/30/2021: Refused to wear his oxygen he is currently satting 90 to 92% on room air ? 07/01/2021: Continues to refuse his oxygen and is anywhere between 88% to 90% on room air with occasional rises to 92% and occasional decreased to 86%. I did have a 45-minute discussion with the family on advance care planning. He is still currently a full code but we are evaluating potentially transitioning to a DNR CCA. Unfortunately he is too confused to go home and given his lack of compliance with oxygen he would likely just be sent back from any senior living he went to. We will continue to monitor ? 07/02/2021: We will try some blow-by oxygen. He did lose his IV access and he is combative so we might be able to give him oral medications if family members are able to come in and feed him but otherwise he does not want anything to do with us and it is nearly impossible to reorient him 3. Acute rhabdomyolysis Due to prolonged period of immobilization on fluids with monitoring of CPK levels -06/27/2021. CK levels trending down 4. Thrombocytopenia ? 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 Patient had been started on Lovenox on admission discontinued due to further drop in platelet counts level -06/27/2021 platelet count; 98 ? 06/28/2021: Platelet count is now 109 5. Early onset dementia ? Patient is on donepezil will continue in addition to supportive care 6. History of thyroidectomy ? On account of toxic multinodular goiter. Patient is on replacement therapy with levothyroxine did order for TSH DVT: SCDs Charges/Coding Visit Charges Inpatient E&M: 69996 Subs Hosp L2
--- NOTE | 2021-07-02 14:24 | CASEMGMT ---
Social Work Note SW placed a call to pt's CHUCK Garcia and left message requesting call back so this worker can update her on SNF process. At this time, this worker is aware of only one SNF that will take pt's insurance and COVID+ pt which is [facility] in [place] however they will not accept pt's that have dementia. SW is still waiting to hear back from [facility] regarding their COVID policy. Pt's 10 day post COVID test will be July 05. Plan: SNF pending acceptance and pre-cert Mayra Bernstein DRAPERY SUPERVISOR, WATCH ASSEMBLY INSTRUCTOR
--- NOTE | 2021-07-02 15:09 | CASEMGMT ---
Addendum entered by Mayra Bernstein 07/02/21 15:45: Correction. SW to fax referral to [facility] once pt is more stable on Oxgy[employer] requirements. Addendum entered by Mayra Bernstein 07/02/21 15:35: SW discussed with RN, pt currently has NRB mask placed on chest with 15 liters blowing to help with O2 sats. SW faxed initial referral to [facility]. Original Note: Social Work Note FELICITAS received call from pt's DIL Radha. FELICITAS informed Radha that this worker is calling SNF to inquire about COVID policy and if they accept pt's insurance. FELICITAS informed Radha that medically pt is not ready for discharge, will be at [facility] through the weekend. FELICITAS informed Radha that pt's 10 days post positive test will be July 05 and that should allow for pt to have more options for SNF. FELICITAS informed Radha that when pt's are not COVID+ there are only two SNF in [facility] that accept pt's insurance and those are [facility] and [facility]. FELICITAS informed Radha that [facility] is not an option as pt has to be 20-21 days from positive test. FELICITAS spoke with Radha about [facility]. Radha agreeable to this worker sending referral to [facility]. FELICITAS to fax referral to [facility]. Plan: SNF pending acceptance and pre-cert Mayra Bernstein MED SPA MANAGER, TRIP MOTOR OPERATOR
[2021-07-02] MEDS: Menthol/Lanolin/Calamine/Znox 113 GM Tube 1 APPLIC TOPICAL (16:26)
--- NOTE | 2021-07-02 18:44 | CPS ---
blow by 15 L
[2021-07-03 03:00] VITALS: O2SAT 92
[2021-07-03 03:42] VITALS: BP 151/72; PULSE 73; RESP 16; TEMP 36.8; O2SAT 92
[2021-07-03 09:09] VITALS: BP 142/69; PULSE 74; RESP 16; TEMP 37.2; O2SAT 89
--- NOTE | 2021-07-03 10:34 | PN.HOSP_ITS ---
Subjective Subjective Still uncooperative and confused. Refusing to let us put in another IV will attempt to draw labs in the morning possible Objective Data Objective Data Vital Signs: Vital Signs Temp Pulse Resp BP Pulse Ox 98.9 F 74 16 142/69 H 89 07/03/21 09:09 07/03/21 09:09 07/03/21 09:09 07/03/21 09:09 07/03/21 09:09 Oxygen Flow Rate (L/min) 15 Oxygen Delivery Method Non-Rebreather Weight: 233 lb 0.458 oz Body Mass Index (BMI) 33.4 Intake & Output: Intake and Output for Last 24 Hours 07/02/21 07/03/21 07/04/21 03:59 03:59 03:59 Intake Total 200 / 200 0 / 0 50 / 50 Output Total 1050 / 1050 1100 / 1100 175 / 175 Balance -850 / -850 -1100 / -1100 -125 / -125 Lab / Micro Data Result Diagrams: 07/01/21 04:43 07/01/21 04:43 Micro: Microbiology 06/25/21 16:40 Blood Culture (Wb) - Right Hand Bacteria Detection (PCR) - Final 06/25/21 16:40 Blood Culture (Wb) - Right Hand Blood Culture - Final Presumptive Micrococcus spp. 06/25/21 16:10 Blood Culture (Wb) - Left Hand Blood Culture - Final No growth in 5 days. 06/25/21 17:20 Urine Catheter - [place] Urine Culture - Final Culture exhibits no growth. 06/25/21 23:00 Urine, Random Legionella Antigen - Final 06/25/21 23:00 Urine Catheter - [place] Streptococcus pneumoniae Antigen (M - Final 06/25/21 17:00 Nasal Secretion SARS-CoV-2 Antigen (Rapid) - Final SARS-CoV-2 (COVID 19) Physical Exam Narrative Const alert and no apparent distress, confused General Appearance: uncooperative HEENT normocephalic and moist oral mucous membranes Eyes PERRL, EOMs intact bilaterally and conjunctivae normal Neck supple and no JVD Resp normal respiratory effort, no retractions and no use of accessory muscles Auscultation: diminished lung sounds; Negative for crackles, rales, rhonchi or wheezes Cardio regular rate, regular rhythm, S1 normal heart sound, S2 normal heart sound and no murmurs GI soft to palpation, non-tender and non-distended; Negative for hepatosplenomegaly Extremity no clubbing, cyanosis or edema Skin no rashes or lesions noted Neuro no focal motor deficits and no sensory deficits noted Psych Flat affect Assessment & Plan Assessment/Plan (1) COVID-19 virus infection: (2) Infectious encephalopathy: PLAN: 1. Acute encephalopathy/hypocalcemia ? Etiology not clear at this point patient however tested positive for COVID admitted to regular nursing floor for further management. Patient had CT of the head obtained was negative -06/26/2021; Patient much more awake compared to previous day however still remains delirious -06/27/2021; Level of sensorium improved ?06/28/2021: Continues to be confused, calcium is still low and even with adjustment with his albumin he is still low, continue to calcium carbonate and will check a phosphorus and magnesium today ? 06/29/2021: He remains confused, with albumin correction his calcium is actually low and he has been refusing his calcium carbonate therefore we will discontinue these and place him on calcium gluconate. Ionized calcium is still pending and this will take some time ? 06/30/2021: Continue with IV calcium replacement, will also replace his potassium today ? 07/01/2021: Remains confused today, calcium is at 7.3 we will repeat a CMP in the morning and see if it corrects with albumin. Will replace potassium today. Still confused but this could just be delirium in the setting of his dementia secondary to COVID ?07/02/2021: We will reattempt to get blood work today later in the afternoon may be he will be more agreeable at that time. ? 07/03/2021: Still uncooperative. Still confused and disoriented. Unsure as to what his labs are and he lost his IV 70s vomiting is put in a new IV. Have discussed this issue with the family they are aware. 2. Acute COVID infection ? Patient admitted for symptomatic treatment currently not requiring oxygen therefore not a candidate for Decadron moreover onset of symptoms not known ruling him out for remdesivir -Patient had to be placed on supplemental oxygen resulting in patient being initiated on Decadron. He was also found to have elevated D-dimer, CTA of the chest was negative for PE he was however found to have bilateral pneumonia. Dec adron initiated. Also did start superimposed antibiotic therapy ? 06/29/2021: Difficulty in getting him to keep his oxygen on, however on room air he does appear to be at around 91 to 92%. He is still very confused therefore disposition is still difficult to ascertain. ? 06/30/2021: Refused to wear his oxygen he is currently satting 90 to 92% on room air ? 07/01/2021: Continues to refuse his oxygen and is anywhere between 88% to 90% on room air with occasional rises to 92% and occasional decreased to 86%. I did have a 45-minute discussion with the family on advance care planning. He is still currently a full code but we are evaluating potentially transitioning to a DNR CCA. Unfortunately he is too confused to go home and given his lack of compliance with oxygen he would likely just be sent back from any [place] [facility] he went to. We will continue to monitor ? 07/02/2021: We will try some blow-by oxygen. He did lose his IV access and he is combative so we might be able to give him oral medications if family members are able to come in and feed him but otherwise he does not want anything to do with us and it is nearly impossible to reorient him ? 07/03/2021: Continue with some blow-by however his oxygen stats still sit generally below 90%. Unfortunately as he is too confused to go home and my concern is discharged to a SNF would result in him being transported back to the hospital since when he sleeps his oxygen drops into the 80s and he refuses to wear nasal cannula. 3. Acute rhabdomyolysis Due to prolonged period of immobilization on fluids with monitoring of CPK levels -06/27/2021. CK levels trending down 4. Thrombocytopenia ? 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 Patient had been started on Lovenox on admission discontinued due to further drop in platelet counts level -06/27/2021 platelet count; 98 ? 06/28/2021: Platelet count is now 109 5. Early onset dementia ? Patient is on donepezil will continue in addition to supportive care 6. History of thyroidectomy ? On account of toxic multinodular goiter. Patient is on replacement therapy with levothyroxine did order for TSH DVT: SCDs Charges/Coding Visit Charges Inpatient E&M: 69466 [facility] Hosp L1
[2021-07-03 22:49] VITALS: PULSE 67; RESP 20; O2SAT 85
--- NOTE | 2021-07-03 22:50 | NURSING ---
Patient is taking his mask off, it was laying close for blow by but he keeps moving it to his abd, swats at staff for trying to put it back. Minimal vitals taken and minimal assessment d/t uncooperative.
[2021-07-04 04:05] VITALS: BP 132/80; PULSE 70; RESP 20; TEMP 36.6; O2SAT 90
[2021-07-04 06:11] LABS: Absolute Lymphocyte Count 0.81 X10^3/uL (0.83-4.51); Absolute Neutrophil Count 5.7 X10^3/uL (2.0-7.7); Basophil# 0.02 X10^3/uL; Basophil% 0.3 % (0-1); Eosinophil# 0.07 X10^3/uL; Hematocrit 44.6 % (40-54); Hemoglobin 14.4 g/dL (13.0-16.5); Lymphocyte # 0.81 X10^3/ul (0.83-4.51); Lymphocyte % 11.4 % (19-41); Mean Corp Hgb Conc 32.3 g/dL (32-36); Mean Corpuscular Volume 89.7 fL (80-94); Mean Platelet Vol. 10.7 fl (6.2-12.0); Monocyte# 0.48 X10^3/uL; Monocyte% 6.7 % (0-10); NRBC Flagged by Analyzer 0 % (0-5); Platelet Count 163 K/mm3 (150-450); RBC Distribution Width CV 13.8 % (11.6-14.6); RBC Distribution Width SD 45.2 fl (35.1-43.9); Red Blood Count 4.97 M/mm3 (4.6-6.2); White Blood Count 7.1 K/mm3 (4.4-11.0)
[2021-07-04 06:43] LABS: Anion Gap 8 (5-15); BUN 22 mg/dL (7-18); BUN/Creat Ratio 33.2 RATIO (10-20); Calcium,Total 6.8 mg/dL (8.5-10.1); Chloride 107 mmol/L (98-107); Creatinine, Serum 0.66 mg/dL (0.70-1.30); EST Glomerular Filtration Rate 126 mL/min (>60); Est Glom Filt Rate - Afr Amer 153 mL/min (>60); Estimated Creatinine Clearance 70.97 ml/min; Glucose 90 mg/dL (74-106); Potassium 3.4 mmol/L (3.5-5.1); Sodium Level 141 mmol/L (136-145)
[2021-07-04 08:26] VITALS: BP 155/60; PULSE 75; RESP 20; O2SAT 87
--- NOTE | 2021-07-04 08:27 | NURSING ---
limited assessment and VS d/t patient's confusion and resistance to care.
--- NOTE | 2021-07-04 09:55 | PCM.PN.HOSP ---
Subjective Subjective Confused, he did acquiesced to getting labs today and unsurprisingly his potassium is still 3.4 and his calcium is still 6.8 Objective Data Objective Data Vital Signs: Vital Signs Temp Pulse Resp BP Pulse Ox 97.9 F 75 20 H 155/60 H 87 07/04/21 04:05 07/04/21 08:26 07/04/21 08:26 07/04/21 08:26 07/04/21 08:26 Oxygen Flow Rate (L/min) 15 Oxygen Delivery Method Room Air Weight: 233 lb 0.458 oz Body Mass Index (BMI) 33.4 Intake & Output: Intake and Output for Last 24 Hours 07/03/21 07/04/21 07/05/21 03:59 03:59 03:59 Intake Total 0 / 0 250 / 250 Output Total 1100 / 1100 675 / 675 Balance -1100 / -1100 -425 / -425 Lab / Micro Data Result Diagrams: 07/04/21 06:04 07/04/21 06:04 Labs: Laboratory Results - last 24 hr 07/04/21 06:04: WBC 7.1, RBC 4.97, Hgb 14.4, Hct 44.6, MCV 89.7, MCH 29.0, MCHC 32.3, RDW Std Deviation 45.2 H, RDW Coeff of Evette 13.8, Plt Count 163, MPV 10.7, Immature Gran % (Auto) 0.600, Neut % (Auto) 80.0 H, Lymph % (Auto) 11.4 L, Cross % (Auto) 6.7, Eos % (Auto) 1.0, Baso % (Auto) 0.3, Absolute Neuts (auto) 5.7, Absolute Lymphs (auto) 0.81 L, Nucleated RBC % 0 07/04/21 06:04: Sodium 141, Potassium 3.4 L, Chloride 107, Carbon Dioxide 26.0, Anion Gap 8, BUN 22 H, Creatinine 0.66 L, Estim Creat Clear Calc 70.97, Est GFR (MDRD) Af Amer 153, Est GFR (MDRD) Non-Af 126, BUN/Creatinine Ratio 33.2 H, Glucose 90, Calcium 6.8 L Micro: Microbiology 06/25/21 16:40 Blood Culture (Wb) - Right Hand Bacteria Detection (PCR) - Final 06/25/21 16:40 Blood Culture (Wb) - Right Hand Blood Culture - Final Presumptive Micrococcus spp. 06/25/21 16:10 Blood Culture (Wb) - Left Hand Blood Culture - Final No growth in 5 days. 06/25/21 17:20 Urine Catheter - [place] Urine Culture - Final Culture exhibits no growth. 06/25/21 23:00 Urine, Random Legionella Antigen - Final 06/25/21 23:00 Urine Catheter - [place] Streptococcus pneumoniae Antigen (M - Final 06/25/21 17:00 Nasal Secretion SARS-CoV-2 Antigen (Rapid) - Final SARS-CoV-2 (COVID 19) Physical Exam Narrative Const alert and no apparent distress, confused General Appearance: uncooperative HEENT normocephalic and moist oral mucous membranes Eyes PERRL, EOMs intact bilaterally and conjunctivae normal Neck supple and no JVD Resp normal respiratory effort, no retractions and no use of accessory muscles Auscultation: diminished lung sounds; Negative for crackles, rales, rhonchi or wheezes Cardio regular rate, regular rhythm, S1 normal heart sound, S2 normal heart sound and no murmurs GI soft to palpation, non-tender and non-distended; Negative for hepatosplenomegaly Extremity no clubbing, cyanosis or edema Skin no rashes or lesions noted Neuro no focal motor deficits and no sensory deficits noted Psych Flat affect Assessment & Plan Assessment/Plan (1) COVID-19 virus infection: (2) Infectious encephalopathy: PLAN: 1. Acute encephalopathy/hypocalcemia ? Etiology not clear at this point patient however tested positive for COVID admitted to regular nursing floor for further management. Patient had CT of the head obtained was negative -06/26/2021; Patient much more awake compared to previous day however still remains delirious -06/27/2021; Level of sensorium improved ?06/28/2021: Continues to be confused, calcium is still low and even with adjustment with his albumin he is still low, continue to calcium carbonate and will check a phosphorus and magnesium today ? 06/29/2021: He remains confused, with albumin correction his calcium is actually low and he has been refusing his calcium carbonate therefore we will discontinue these and place him on calcium gluconate. Ionized calcium is still pending and this will take some time ? 06/30/2021: Continue with IV calcium replacement, will also replace his potassium today ? 07/01/2021: Remains confused today, calcium is at 7.3 we will repeat a CMP in the morning and see if it corrects with albumin. Will replace potassium today. Still confused but this could just be delirium in the setting of his dementia secondary to COVID ?07/02/2021: We will reattempt to get blood work today later in the afternoon may be he will be more agreeable at that time. ? 07/03/2021: Still uncooperative. Still confused and disoriented. Unsure as to what his labs are and he lost his IV 70s vomiting is put in a new IV. Have discussed this issue with the family they are aware. ? 07/04/2021: He did get labs today which shows hypokalemia as well as hypocalcemia. He is still uncooperative and taking oral medications therefore we will try to get another IV placed in him and see if he will tolerate it we can do IV replacements 2. Acute COVID infection ? Patient admitted for symptomatic treatment currently not requiring oxygen therefore not a candidate for Decadron moreover onset of symptoms not known ruling him out for remdesivir -Patient had to be placed on supplemental oxygen resulting in patient being initiated on Decadron. He was also found to have elevated D-dimer, CTA of the chest was negative for PE he was however found to have bilateral pneumonia. Decadron initiated. Also did start superimposed antibiotic therapy ? 06/29/2021: Difficulty in getting him to keep his oxygen on, however on room air he does appear to be at around 91 to 92%. He is still very confused therefore disposition is still difficult to ascertain. ? 06/30/2021: Refused to wear his oxygen he is currently satting 90 to 92% on room air ? 07/01/2021: Continues to refuse his oxygen and is anywhere between 88% to 90% on room air with occasional rises to 92% and occasional decreased to 86%. I did have a 45-minute discussion with the family on advance care planning. He is still currently a full code but we are evaluating potentially transitioning to a DNR CCA. Unfortunately he is too confused to go home and given his lack of compliance with oxygen he would likely just be sent back from any assisted he went to. We will continue to monitor ? 07/02/2021: We will try some blow-by oxygen. He did lose his IV access and he is combative so we might be able to give him oral medications if family members are able to come in and feed him but otherwise he does not want anything to do with us and it is nearly impossible to reorient him ? 07/03/2021: Continue with some blow-by however his oxygen stats still sit generally below 90%. Unfortunately as he is too confused to go home and my concern is discharge to a SNF would result in him being transported back to the hospital since when he sleeps his oxygen drops into the 80s and he refuses to wear any oxygen. ? 07/04/2021: Family is aware of the difficulty we have had trying to take care of him I have discussed with him that we cannot restrain him for weeks in order to get this better as he is not trying to crawl out of bed and not at direct danger to himself. 3. Acute rhabdomyolysis Due to prolonged period of immobilization on fluids with monitoring of CPK levels -06/27/2021. CK levels trending down 4. Thrombocytopenia ? 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 Patient had been started on Lovenox on admission discontinued due to further drop in platelet counts level -06/27/2021 platelet count; 98 ? 06/28/2021: Platelet count is now 109 5. Early onset dementia ? Patient is on donepezil will continue in addition to supportive care 6. History of thyroidectomy ? On account of toxic multinodular goiter. Patient is on replacement therapy with levothyroxine did order for TSH DVT: SCDs Charges/Coding Visit Charges Inpatient E&M: 48137 Subs Hosp L2
[2021-07-04 11:23] LABS: Magnesium 2.1 mg/dL (1.6-2.6); Phosphorus 3.3 mg/dL (2.5-4.9)
[2021-07-04] MEDS: 0.9% Saline Lock 10 ML Syringe IV ×2 (12:52→14:55)
[2021-07-04] MEDS: dexAMETHasone 10 MG/ML Vial 6 MG IV (14:55)
[2021-07-04 14:58] VITALS: BP 145/60; PULSE 60; RESP 22; O2SAT 90
--- NOTE | 2021-07-04 15:01 | NURSING ---
Patient continues to be resistive to care.
[2021-07-04 15:31] VITALS: O2SAT 90
[2021-07-04 22:45] VITALS: BP 140/65; PULSE 62; RESP 18; TEMP 36.1; O2SAT 90
[2021-07-04 23:00] VITALS: O2SAT 90
[2021-07-05] VITALS (7 sets, daily range): BP systolic 118–132; BP diastolic 63–68; PULSE 60–66; RESP 16–18; TEMP 36.1–37.1; O2SAT 89–92
[2021-07-05 06:49] LABS: Absolute Lymphocyte Count 1.07 X10^3/uL (0.83-4.51); Absolute Neutrophil Count 5.3 X10^3/uL (2.0-7.7); Basophil# 0.03 X10^3/uL; Basophil% 0.4 % (0-1); Eosinophil# 0.01 X10^3/uL; Eosinophils% 0.1 % (0-5); Hematocrit 47.3 % (40-54); Hemoglobin 15.6 g/dL (13.0-16.5); Lymphocyte # 1.07 X10^3/ul (0.83-4.51); Lymphocyte % 15.6 % (19-41); Mean Corpuscular Hgb 29.2 pg (27.0-32.0); Mean Corpuscular Volume 88.4 fL (80-94); Mean Platelet Vol. 11.1 fl (6.2-12.0); Monocyte# 0.36 X10^3/uL; Monocyte% 5.2 % (0-10); NRBC Flagged by Analyzer 0 % (0-5); Neutrophil # 5.34 X10^3/uL (2.7-7.7); POSITIVE MORPHOLOGY YES; Platelet Count 182 K/mm3 (150-450); RBC Distribution Width CV 13.4 % (11.6-14.6); RBC Distribution Width SD 43.4 fl (35.1-43.9); Red Blood Count 5.35 M/mm3 (4.6-6.2); White Blood Count 6.9 K/mm3 (4.4-11.0)
[2021-07-05 06:53] LABS: Differential Indicated SCAN CRITERIA MET
[2021-07-05 07:06] LABS: ALB/GLOB Ratio 0.4 RATIO (0.9-2.4); AST(SGOT) 44 U/L (15-37); Alanine Aminotransfer ALT/SGPT 39 U/L (16-61); Alkaline Phosphatase 44 U/L (45-117); Anion Gap 8 (5-15); BUN 25 mg/dL (7-18); BUN/Creat Ratio 36.9 RATIO (10-20); Calcium,Total 7.4 mg/dL (8.5-10.1); Chloride 108 mmol/L (98-107); Creatinine, Serum 0.68 mg/dL (0.70-1.30); EST Glomerular Filtration Rate 123 mL/min (>60); Est Glom Filt Rate - Afr Amer 149 mL/min (>60); Estimated Creatinine Clearance 70.97 ml/min; Globulin 5.2 g/dL (2.2-4.2); Glucose 110 mg/dL (74-106); Potassium 3.7 mmol/L (3.5-5.1); Protein, Total 7.2 g/dL (6.4-8.2); Sodium Level 142 mmol/L (136-145)
[2021-07-05 07:39] LABS: Reactive Lymphocyte RARE
--- NOTE | 2021-07-05 07:42 | PN.HOSP_ITS ---
Subjective Subjective Patient is a 70-year-old gentleman with history of early onset dementia admitted with acute encephalopathy. Diagnosed with COVID-19. Hospital stay complicated by acute rhabdomyolysis Objective Data Objective Data Vital Signs: Vital Signs Temp Pulse Resp BP Pulse Ox 96.9 F L 62 18 140/65 H 90 07/04/21 22:45 07/04/21 22:45 07/04/21 22:45 07/04/21 22:45 07/04/21 23:00 Oxygen Flow Rate (L/min) 15 Oxygen Delivery Method Room Air Weight: 105.7 kg Body Mass Index (BMI) 33.4 Intake & Output: Intake and Output for Last 24 Hours 07/03/21 07/04/21 07/05/21 23:59 23:59 23:59 Intake Total 250 / 250 620 / 620 Output Total 850 / 850 500 / 500 150 / 150 Balance -600 / -600 120 / 120 -150 / -150 Lab / Micro Data Result Diagrams: 07/05/21 05:56 07/05/21 05:56 Labs: Laboratory Results - last 24 hr 07/04/21 06:44: Phosphorus 3.3, Magnesium 2.1 07/05/21 05:56: WBC 6.9, RBC 5.35, Hgb 15.6, Hct 47.3, MCV 88.4, MCH 29.2, MCHC 33.0, RDW Std Deviation 43.4, RDW Coeff of Evette 13.4, Plt Count 182, MPV 11.1, Immature Gran % (Auto) 0.700, Neut % (Auto) 78.0 H, Lymph % (Auto) 15.6 L, Har[place]on % (Auto) 5.2, Eos % (Auto) 0.1, Baso % (Auto) 0.4, Absolute Neuts (auto) 5.3, Absolute Lymphs (auto) 1.07, Nucleated RBC % 0, Reactive Lymphocytes RARE 07/05/21 05:56: Sodium 142, Potassium 3.7, Chloride 108 H, Carbon Dioxide 26.0, Anion Gap 8, BUN 25 H, Creatinine 0.68 L, Estim Creat Clear Calc 70.97, Est GFR (MDRD) Af Amer 149, Est GFR (MDRD) Non-Af 123, BUN/Creatinine Ratio 36.9 H, Glucose 110 H, Calcium 7.4 L, Total Bilirubin 1.00, AST 44 H, ALT 39, Alkaline Phosphatase 44 L, Total Protein 7.2, Albumin 2.0 L, Globulin 5.2 H, Albumin/Globulin Ratio 0.4 L Micro: Microbiology 06/25/21 16:40 Blood Culture (Wb) - Right Hand Bacteria Detection (PCR) - Final 06/25/21 16:40 Blood Culture (Wb) - Right Hand Blood Culture - Final Presumptive Micrococcus spp. 06/25/21 16:10 Blood Culture (Wb) - Left Hand Blood Culture - Final No growth in 5 days. 06/25/21 17:20 Urine Catheter - [place] Urine Culture - Final Culture exhibits no growth. 06/25/21 23:00 Urine, Random Legionella Antigen - Final 06/25/21 23:00 Urine Catheter - [place] Streptococcus pneumoniae Antigen (M - Final 06/25/21 17:00 Nasal Secretion SARS-CoV-2 Antigen (Rapid) - Final SARS-CoV-2 (COVID 19) Physical Exam Narrative GENERAL: Patient is delirious HEENT: Atraumatic; EYES; Anicteric, Normal Conjunctiva NECK; supple, normal thyroid, RESPIRATORY: Diminished to auscultation CARDIOVASCULAR: Regular S1 S2, GI: soft, normoactive bowel sounds, : No Renal angle tenderness; EXTREMITIES: Chronic skin changes lower extremities MUSCULOSKELETAL: no muscle waisting NEURO: Awake; no lateralizing signs. SKIN: No Rash PSYCH; Flat affect Assessment & Plan Assessment/Plan (1) COVID-19 virus infection: (2) Infectious encephalopathy: PLAN: 1. Acute encephalopathy Secondary to COVID-19 pneumonia. Patient Covid has been treated appropriately however patient delirium still persist. His underlying history of dementia may be complicating his care 2. Acute COVID infection ? Patient admitted for symptomatic treatment currently not requiring oxygen therefore not a candidate for Decadron moreover onset of symptoms not known ruling him out for remdesivir -Patient had to be placed on supplemental oxygen resulting in patient being initiated on Decadron. He was also found to have elevated D-dimer, CTA of the chest was negative for PE he was however found to have bilateral pneumonia. Decadron initiated. Also did start superimposed antibiotic therapy 3. Acute rhabdomyolysis Due to prolonged period of immobilization on fluids with monitoring of CPK levels Managed with IV fluids. 5. Thrombocytopenia ? 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 Patient had been started on Lovenox on admission discontinued due to further drop in platelet counts level -06/27/2021 platelet count; 98 ?07/05/2021; platelet count has stabilized 6. Early onset dementia ? Patient is on donepezil discontinue in addition to supportive care 7. History of thyroidectomy ? On account of toxic multinodular goiter. Patient is on replacement therapy with levothyroxine did order for TSH 8. DVT prophylaxis ? SCDs only in view of above 9. Hypocalcemia -Multifactorial including possibly low oral intake as well as hypoalbuminemia. Corrected calcium for the low albumin 7.6. Ordered ionized calcium patient placed on supplemental calcium ? Advance planning; had a 25 minutes, with family went to the patient's case as well as prognosis. Also brought up the challenges faced by his care in view of his severe underlying dementia. Patient has apparently not allowed the nursing staff to keep his oxygen on. We subsequently changed her CODE STATUS to DNR comfort care. Patient continuous oxygen monitoring will be discontinued. Daughter will also be allowed to visit patient to make further management decisions Charges/Coding Visit Charges Inpatient E&M: 89749 Subs Hosp L2 Procedures Hospitalists Procedures: 90513 Advncd Care Plan 30 Min
[2021-07-05] MEDS: 0.9% Saline Lock 10 ML Syringe IV (07:50)
[2021-07-05] MEDS: Menthol/Lanolin/Calamine/Znox 113 GM Tube 1 APPLIC TOPICAL (07:50)
[2021-07-05] MEDS: dexAMETHasone 10 MG/ML Vial 6 MG IV (07:50)
--- NOTE | 2021-07-05 09:24 | NURSING ---
patient cooperative with vitals being obtained, decadron IV given, IV suellen wrapped, then became uncooperative half way through assessment.
--- NOTE | 2021-07-05 11:00 | CASEMGMT ---
Social Work Note SW placed a call to [facility] and left message for Desarea in admissions regarding referral. SW faxed referral to [facility]. Plan: SNF pending acceptance and pre-cert Mayra Bernstein STUD DRIVER, STRAND BUNCHER FINE WIRE
--- NOTE | 2021-07-05 11:35 | NURSING ---
Brother Jorden called in requesting update. When I explained to jorden that I had attempted to communicate with writting to the patient was that he responded with asking if I want to buy a duck and a laugh Jorden became excited stating this was the patients trademark. Stated patient would always start his greetings with this phrase and even had a t-shirt made to this extent.
[2021-07-06] VITALS (8 sets, daily range): BP systolic 109–134; BP diastolic 56–86; PULSE 61–66; RESP 16–20; TEMP 36.4–36.6; O2SAT 90–92
--- NOTE | 2021-07-06 07:38 | PN.HOSP_ITS ---
Subjective Subjective Patient seen appears calm this a.m. Patient is more engaging compared to previous day. Objective Data Objective Data Vital Signs: Vital Signs Temp Pulse Resp BP Pulse Ox 97.7 F L 61 16 127/86 H 91 07/06/21 05:40 07/06/21 05:40 07/06/21 05:40 07/06/21 05:40 07/06/21 05:40 Oxygen Flow Rate (L/min) 3 Oxygen Delivery Method Non-Rebreather Weight: 105.7 kg Body Mass Index (BMI) 33.4 Intake & Output: Intake and Output for Last 24 Hours 07/04/21 07/05/21 07/06/21 23:59 23:59 23:59 Intake Total 620 / 620 300 / 300 200 / 200 Output Total 500 / 500 625 / 625 250 / 250 Balance 120 / 120 -325 / -325 -50 / -50 Lab / Micro Data Result Diagrams: 07/05/21 05:56 07/05/21 05:56 Labs: Laboratory Results - last 24 hr 07/05/21 05:56: Reactive Lymphocytes RARE Micro: Microbiology 06/25/21 16:40 Blood Culture (Wb) - Right Hand Bacteria Detection (PCR) - Final 06/25/21 16:40 Blood Culture (Wb) - Right Hand Blood Culture - Final Presumptive Micrococcus spp. 06/25/21 16:10 Blood Culture (Wb) - Left Hand Blood Culture - Final No growth in 5 days. 06/25/21 17:20 Urine Catheter - [place] Urine Culture - Final Culture exhibits no growth. 06/25/21 23:00 Urine, Random Legionella Antigen - Final 06/25/21 23:00 Urine Catheter - [place] Streptococcus pneumoniae Antigen (M - Final 06/25/21 17:00 Nasal Secretion SARS-CoV-2 Antigen (Rapid) - Final SARS-CoV-2 (COVID 19) Physical Exam Narrative GENERAL: Patient is delirious HEENT: Atraumatic; EYES; Anicteric, Normal Conjunctiva NECK; supple, normal thyroid, RESPIRATORY: Diminished to auscultation CARDIOVASCULAR: Regular S1 S2, GI: soft, normoactive bowel sounds, : No Renal angle tenderness; EXTREMITIES: Chronic skin changes lower extremities MUSCULOSKELETAL: no muscle waisting NEURO: Awake; no lateralizing signs. SKIN: No Rash PSYCH; Flat affect Assessment & Plan Assessment/Plan (1) COVID-19 virus infection: (2) Infectious encephalopathy: PLAN: 1. Acute encephalopathy Secondary to COVID-19 pneumonia. Patient Covid has been treated appropriately however patient delirium still persist. His underlying history of dementia may be complicating his care -07/06/2021atient seen appears calm this a.m. Patient is more engaging compared to previous day. 2. Acute COVID infection ? Patient admitted for symptomatic treatment currently not requiring oxygen therefore not a candidate for Decadron moreover onset of symptoms not known ruling him out for remdesivir -Patient had to be placed on supplemental oxygen resulting in patient being initiated on Decadron. He was also found to have elevated D-dimer, CTA of the chest was negative for PE he was however found to have bilateral pneumonia. Decadron initiated. Also did start superimposed antibiotic therapy 3. Acute rhabdomyolysis Due to prolonged period of immobilization on fluids with monitoring of CPK level s Managed with IV fluids. 5. Thrombocytopenia ? 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 Patient had been started on Lovenox on admission discontinued due to further drop in platelet counts level -06/27/2021 platelet count; 98 ?07/05/2021; platelet count has stabilized 6. Early onset dementia ? Patient is on donepezil discontinue in addition to supportive care 7. History of thyroidectomy ? On account of toxic multinodular goiter. Patient is on replacement therapy with levothyroxine did order for TSH 8. DVT prophylaxis ? SCDs only in view of above 9. Hypocalcemia -Multifactorial including possibly low oral intake as well as hypoalbuminemia. Corrected calcium for the low albumin 7.6. Ordered ionized calcium patient placed on supplemental calcium Charges/Coding Visit Charges Inpatient E&M: 33558 Subs Hosp L2
--- NOTE | 2021-07-06 08:40 | NURSING ---
Addendum entered by Lidia Castellanos 07/06/21 09:04: pt agreed to taking pills whole with water. after a few bites of toast, he refused any other breakfast. continuous pulse ox monitor removed per Dr Osei request Original Note: upon entering room, pt sleeping in bed with nonrebreather mask by his side, O2 at 87% on room air. when nonrebreather mask is replaced on chest as blow-by, O2 improves to 92%. when pt awakened for breakfast, he refused to be fed by [facility] but when tray was set up in front of him, he began to feed self.
[2021-07-06] MEDS: dexAMETHasone 10 MG/ML Vial 6 MG IV (08:50)
[2021-07-06] MEDS: 0.9% Saline Lock 10 ML Syringe IV (08:52)
[2021-07-06] MEDS: Levothyroxine 175 MCG Tablet PO (08:54)
[2021-07-06] MEDS: Menthol/Lanolin/Calamine/Znox 113 GM Tube 1 APPLIC TOPICAL (08:55)
[2021-07-06] MEDS: Donepezil HCl 10 MG Tablet PO (09:02)
--- NOTE | 2021-07-06 09:50 | CASEMGMT ---
Pt screened with [facility] Palliative Care screening tool, pt met criteria. Per hospitalist, pt would benefit but not ordered d/t palliative not seeing COVID patients in the hospital at this time.
--- NOTE | 2021-07-06 11:23 | CASEMGMT ---
Addendum entered by Mayra Bernstein 07/06/21 15:13: SW received email from Lisandra at [facility] stating they can accept pt and will submit for pre-cert. Lisandra requested updated clinicals be faxed. Clinicals faxed. FELICITAS placed a call to pt's CHUCK Garcia and updated her that [facility] has accepted pt pending pre-cert. Lisandra states she will not be available 2-7pm tomorrow and any updates can be left on her voicemail. Plan: [facility] pending pre-cert Original Note: Social Work Note SW received email from Lisandra at [facility] with many questions regarding referral. SW responded to Lisandra and answered questions. FELICITAS still waiting for determination regarding referral. Plan: SNF pending acceptance and pre-cert Mayra Bernstein AIRPORT OPERATIONS MANAGER, DRAW FRAME TENDER
[2021-07-07 04:37] VITALS: O2SAT 92
[2021-07-07 04:40] VITALS: BP 131/61; PULSE 61; RESP 16; TEMP 36.7; O2SAT 92
[2021-07-07] MEDS: Menthol/Lanolin/Calamine/Znox 113 GM Tube 1 APPLIC TOPICAL ×3 (04:42→19:46)
--- NOTE | 2021-07-07 07:15 | PN.HOSP_ITS ---
Subjective Subjective Patient has remained stable without oxygen. Per nursing staff oxygen saturation is ranged from 91 to 93%. Plan is for patient to be transferred to a intermediate facility pending bed availability Objective Data Objective Data Vital Signs: Vital Signs Temp Pulse Resp BP Pulse Ox 98.0 F 61 16 131/61 H 92 07/07/21 04:40 07/07/21 04:40 07/07/21 04:40 07/07/21 04:40 07/07/21 04:40 Oxygen Flow Rate (L/min) 2 Oxygen Delivery Method Room Air Weight: 105.7 kg Body Mass Index (BMI) 33.4 Intake & Output: Intake and Output for Last 24 Hours 07/05/21 07/06/21 07/07/21 23:59 23:59 23:59 Intake Total 300 / 300 440 / 440 300 / 300 Output Total 625 / 625 825 / 825 200 / 200 Balance -325 / -325 -385 / -385 100 / 100 Lab / Micro Data Result Diagrams: 07/05/21 05:56 07/05/21 05:56 Micro: Microbiology 06/25/21 16:40 Blood Culture (Wb) - Right Hand Bacteria Detection (PCR) - Final 06/25/21 16:40 Blood Culture (Wb) - Right Hand Blood Culture - Final Presumptive Micrococcus spp. 06/25/21 16:10 Blood Culture (Wb) - Left Hand Blood Culture - Final No growth in 5 days. 06/25/21 17:20 Urine Catheter - [place] Urine Culture - Final Culture exhibits no growth. 06/25/21 23:00 Urine, Random Legionella Antigen - Final 06/25/21 23:00 Urine Catheter - [place] Streptococcus pneumoniae Antigen (M - Final 06/25/21 17:00 Nasal Secretion SARS-CoV-2 Antigen (Rapid) - Final SARS-CoV-2 (COVID 19) Physical Exam Narrative GENERAL: Patient in no apparent distress HEENT: Atraumatic; EYES; Anicteric, Normal Conjunctiva NECK; supple, normal thyroid, RESPIRATORY: Diminished to auscultation CARDIOVASCULAR: Regular S1 S2, GI: soft, normoactive bowel sounds, : No Renal angle tenderness; EXTREMITIES: Chronic skin changes lower extremities MUSCULOSKELETAL: no muscle waisting NEURO: Awake; no lateralizing signs. SKIN: No Rash PSYCH; Flat affect Assessment & Plan Assessment/Plan (1) COVID-19 virus infection: (2) Infectious encephalopathy: PLAN: 1. Acute encephalopathy Secondary to COVID-19 pneumonia. Patient Covid has been treated appropriately however patient delirium still persist. His underlying history of dementia may be complicating his care -07/06/2021atient seen appears calm this a.m. Patient is more engaging compared to previous day. 07/07/2021; Patient has remained stable without oxygen. Per nursing staff oxygen saturation is ranged from 91 to 93%. Plan is for patient to be transferred to a intermediate facility pending bed availability 2. Acute COVID infection ? Patient admitted for symptomatic treatment currently not requiring oxygen therefore not a candidate for Decadron moreover onset of symptoms not known ruling him out for remdesivir -Patient had to be placed on supplemental oxygen resulting in patient being initiated on Decadron. He was also found to have elevated D-dimer, CTA of the chest was negative for PE he was however found to have bilateral pneumonia. Decadron initiated. Also did start superimposed antibiotic therapy 3. Acute rhabdomyolysis Due to prolonged period of immobilization on fluids with monitoring of CPK levels Managed with IV fluids. 5. Thrombocytopenia ? 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 Patient had been started on Lovenox on admission discontinued due to further drop in platelet counts level -06/27/2021 platelet count; 98 ?07/05/2021; platelet count has stabilized 6. Early onset dementia ? Patient is on donepezil discontinue in addition to supportive care 7. History of thyroidectomy ? On account of toxic multinodular goiter. Patient is on replacement therapy with levothyroxine did order for TSH 8. DVT prophylaxis ? SCDs only in view of above 9. Hypocalcemia -Multifactorial including possibly low oral intake as well as hypoalbuminemia. Corrected calcium for the low albumin 7.6. Ordered ionized calcium patient placed on supplemental calcium Charges/Coding Visit Charges Inpatient E&M: 15670 Subs Hosp L2
[2021-07-07 08:11] VITALS: BP 144/74; PULSE 73; RESP 16; TEMP 36.4; O2SAT 90
[2021-07-07] MEDS: Donepezil HCl 10 MG Tablet PO (08:15)
[2021-07-07] MEDS: Levothyroxine 175 MCG Tablet PO (08:15)
[2021-07-07] MEDS: dexAMETHasone 10 MG/ML Vial 6 MG IV (08:15)
[2021-07-07] MEDS: 0.9% Saline Lock 10 ML Syringe IV (08:16)
--- NOTE | 2021-07-07 13:14 | CASEMGMT ---
Addendum entered by Mayra Bernstein 07/07/21 15:50: FELICITAS received update from [facility] that [facility] is stating that pt cannot refuse therapy as that is how they are going to skill pt. FELICITAS spoke with RN who states pt got up to the chair today with PT/OT. RN spoke with PT/OT they are putting in their notes soon. FELICITAS faxed updated clinicals to [facility]. Lisandra states she will send the updated notes to [facility]. Plan: [facility] pending pre-cert Original Note: Social Work Note FELICITAS reached out to Lisandra at [facility] and asked for update on pt's pre-cert. FELICITAS waiting for response back from [facility]. Plan: [facility] pending pre-cert Mayra Bernstein PSYCHIATRIC CLINICIAN, BLACKJACK DEALER
--- NOTE | 2021-07-07 13:48 | CON.PCM_ITS ---
Assessment & Plan Assessment/Plan (1) Tinea unguium: (2) Toe pain, right: (3) Toe pain, left: PLAN: I reviewed the patient's case. It is noted he is not able to participate in the exam at this time. A verbally reviewed his toenail condition. The nails were debrided with a nail nipper after verbal consent was obtained without incident: Bilateral 1, 2, 3, 4, 5. The nails were debrided in length and thickness to reduce pressure, potential fungal load, and to prevent wound formation. The patient tolerated this well. The patient will proceed with palliative care only at this time. To follow-up with the [facility] if needed in the future for this condition. To wear protective and supportive shoes. To check feet daily and keep webspaces clean and dry. To moisturize skin to preserve skin integrity was also recommended. Thank you for the consultation. Medical management noted per hospitalist. Please do not hesitate to call if you have any questions. Raisa Mason DPM, [facility] [phone] HPI Consult Data Date of Consult: 07/09/21 HPI Narrative HPI Narrative: VIRGILIO SHERIDAN, is a 71 M who was seen bedside for long thick toenails. He asked for help safely trimming these on his own which she is unable to perform safely. He rates his pain at least as moderate. He is unable to fully participate in the exam and is admitted for other comorbidities and acute issues. He is Covid with encephalopathy. [facility] Medical History (Updated 07/09/21 @ 07:[address] Raisa Mason DPM) Dementia Hypothyroid Home Medications donepezil 10 mg PO DAILY 06/25/21 [History Last Taken Unknown] levothyroxine 175 mcg PO DAILY 06/25/21 [History Last Taken Unknown] acetaminophen [Tylenol] 650 mg PO Q6H PRN PRN #0 tab 07/08/21 [Rx Last Taken Unknown] albuterol sulfate 2.5 mg INHALATION Q2H PRN PRN #0 ml 07/08/21 [Rx Last Taken Unknown] alum-mag hydroxide-simeth [Mag-Al Plus Extra Strength] 30 ml PO Q6H PRN PRN #0 ml 07/08/21 [Rx Last Taken Unknown] melatonin 3 mg PO QHS PRN PRN #0 tab 07/08/21 [Rx Last Taken Unknown] menthol-zinc oxide [Calmoseptine] 1 applic TOPICAL BID #0 g 07/08/21 [Rx Last Taken Unknown] quetiapine 12.5 mg PO QHS PRN PRN #0 tab 07/08/21 [Rx Last Taken Unknown] Allergy/AdvReac Type Severity Reaction Status Date / Time No Known Allergies Allergy Verified 06/25/21 16:04 Family History unable to obtain Surgical History H/O thyroidectomy Social History household members: none Smoking Status: Current every day smoker tobacco type: cigarettes substance use type: does not use Physical Exam Const no apparent distress Constitutional Narrative: neither alert nor oriented General Appearance: cooperative HEENT normocephalic Extremity Extremity Narrative: No calf tenderness 2 out of 4 PT and DP pulses bilateral. No gross lower extremity edema. Muscle wasting noted General Extremity: edema and no tenderness to palpation of joints or extremities; Negative for cyanosis Skin Skin Narrative: no purulence, no streaking, no odor, no infection. Toenails bilateral 1, 2, 3, 4, 5 are long, thick, dystrophic with subungual debris and pain on palpation. The toenails are also curling at the medial lateral borders and plantar aspects especially hallux more than lesser toes General Skin Exam: Negative for erythema Neuro Neuro Narrative: lack of normal epicritic sensation via light touch is consistent with neuropathy status Psych cooperative and affect normal Lab / Micro Data Result Diagrams: 07/05/21 05:56 07/05/21 05:56
[2021-07-07 15:58] VITALS: BP 120/76; PULSE 78; RESP 18; TEMP 36; O2SAT 93
[2021-07-07 19:44] VITALS: BP 157/73; PULSE 65; RESP 18; TEMP 36.6; O2SAT 92
[2021-07-08] MEDS: QUEtiapine 25 MG Tablet 12.5 MG PO (00:28)
[2021-07-08 02:00] VITALS: BP 126/82; PULSE 66; RESP 18; TEMP 36.4; O2SAT 96
--- NOTE | 2021-07-08 07:23 | PN.HOSP_ITS ---
Subjective Subjective Patient seen appears comfortable at rest. Transfer to a senior living facility pending Objective Data Objective Data Vital Signs: Vital Signs Temp Pulse Resp BP Pulse Ox 97.6 F L 66 18 126/82 H 96 07/08/21 02:00 07/08/21 02:00 07/08/21 02:00 07/08/21 02:00 07/08/21 02:00 Oxygen Flow Rate (L/min) 2 Oxygen Delivery Method Room Air Weight: 105.7 kg Body Mass Index (BMI) 33.4 Intake & Output: Intake and Output for Last 24 Hours 07/06/21 07/07/21 07/08/21 23:59 23:59 23:59 Intake Total 440 / 440 1000 / 1000 Output Total 825 / 825 850 / 850 250 / 250 Balance -385 / -385 150 / 150 -250 / -250 Lab / Micro Data Result Diagrams: 07/05/21 05:56 07/05/21 05:56 Micro: Microbiology 06/25/21 16:40 Blood Culture (Wb) - Right Hand Bacteria Detection (PCR) - Final 06/25/21 16:40 Blood Culture (Wb) - Right Hand Blood Culture - Final Presumptive Micrococcus spp. 06/25/21 16:10 Blood Culture (Wb) - Left Hand Blood Culture - Final No growth in 5 days. 06/25/21 17:20 Urine Catheter - [place] Urine Culture - Final Culture exhibits no growth. 06/25/21 23:00 Urine, Random Legionella Antigen - Final 06/25/21 23:00 Urine Catheter - [place] Streptococcus pneumoniae Antigen (M - Final 06/25/21 17:00 Nasal Secretion SARS-CoV-2 Antigen (Rapid) - Final SARS-CoV-2 (COVID 19) Physical Exam Narrative GENERAL: Patient in no apparent distress HEENT: Atraumatic; EYES; Anicteric, Normal Conjunctiva NECK; supple, normal thyroid, RESPIRATORY: Diminished to auscultation CARDIOVASCULAR: Regular S1 S2, GI: soft, normoactive bowel sounds, : No Renal angle tenderness; EXTREMITIES: Chronic skin changes lower extremities MUSCULOSKELETAL: no muscle waisting NEURO: Awake; no lateralizing signs. SKIN: No Rash PSYCH; Flat affect Assessment & Plan Assessment/Plan (1) COVID-19 virus infection: (2) Infectious encephalopathy: PLAN: 1. Acute encephalopathy Secondary to COVID-19 pneumonia. Patient Covid has been treated appropriately however patient delirium still persist. His underlying history of dementia may be complicating his care -07/06/2021atient seen appears calm this a.m. Patient is more engaging compared to previous day. 07/07/2021; Patient has remained stable without oxygen. Per nursing staff oxygen saturation is ranged from 91 to 93%. Plan is for patient to be transferred to a senior living facility pending bed availability -07/08/2021; Patient seen appears comfortable at rest. Transfer to a senior living facility pend 2. Acute COVID infection ? Patient admitted for symptomatic treatment currently not requiring oxygen therefore not a candidate for Decadron moreover onset of symptoms not known ruling him out for remdesivir -Patient had to be placed on supplemental oxygen resulting in patient being initiated on Decadron. He was also found to have elevated D-dimer, CTA of the chest was negative for PE he was however found to have bilateral pneumonia. Decadron initiated. Also did start superimposed antibiotic therapy 3. Acute rhabdomyolysis Due to prolonged period of immobilization on fluids with monitoring of CPK levels Managed with IV fluids. 5. Thrombocytopenia ? 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 Patient had been started on Lovenox on admission discontinued due to further drop in platelet counts level -06/27/2021 platelet count; 98 ?07/05/2021; platelet count has stabilized 6. Early onset dementia ? Patient is on donepezil discontinue in addition to supportive care 7. History of thyroidectomy ? On account of toxic multinodular goiter. Patient is on replacement therapy with levothyroxine did order for TSH 8. DVT prophylaxis ? SCDs only in view of above 9. Hypocalcemia -Multifactorial including possibly low oral intake as well as hypoalbuminemia. Corrected calcium for the low albumin 7.6. Ordered ionized calcium patient pl aced on supplemental calcium Charges/Coding Visit Charges Inpatient E&M: 02443 Subs Hosp L2
[2021-07-08 08:00] VITALS: BP 128/73; PULSE 59; RESP 18; TEMP 36.4; O2SAT 93
[2021-07-08] MEDS: Levothyroxine 175 MCG Tablet PO (09:10)
[2021-07-08] MEDS: Donepezil HCl 10 MG Tablet PO (09:10)
[2021-07-08] MEDS: dexAMETHasone 10 MG/ML Vial 6 MG IV (09:11)
[2021-07-08] MEDS: Menthol/Lanolin/Calamine/Znox 113 GM Tube 1 APPLIC TOPICAL (09:11)
--- NOTE | 2021-07-08 11:52 | PCM.TXEXTCAR ---
Diet 06/25/21 18:03 Diet: Regular - General Food consistency:: Regular Liquid Consistency:: Regular/Thin Type of Dietary Supplement:: Ensure Enlive Diet Comments: 8 oz EE w/ meals tid; MC or EP w/ L&D Therapies Occupational Therapy: Eval and Treat Speech Therapy: Eval and Treat Problem/Diagnosis (1) COVID-19 virus infection: Status: Acute (2) Infectious encephalopathy: Status: Acute Allergies/Procedures Done in Hospital Allergies No Known Allergies Allergy (Verified 06/25/21 16:04) Type of Care/Length of Stay Estimated LOS: Convalescent Care Less Than 30 days Type of Care Needed: Skilled Rehab Potential: Good Prognosis: Good Additional Orders/Day of Discharge Day of Discharge: 07/08/21 Dietary and Speech Recommendations Dietitian Recommendations/Changes: Continue regular diet as ordered. Provide 4 oz ensure enlive at meals and ensure pudding or magic cup w/ meals for increased nutrition if consumed Rec consider supplemental nutrition support to help prevent further decline in pt nutritional status - if in accordance w/ pt/family wishes. Can provide rec as warranted. Discharge Plan Admission Admit Date/Time: 06/25/21 18:02 Attending Provider: Raphael Osei Primary Care Provider: Angel Royal Consulting Providers: Raisa Mason Discharge Orders/Prescriptions Prescriptions: New quetiapine 25 mg Tablet 12.5 mg PO QHS PRN PRN (Reason: evening agitation) Qty: 0 RF: 0 acetaminophen [Tylenol] 325 mg Tablet 650 mg PO Q6H PRN PRN (Reason: Pain Score 1-10/Temp > 100.7 F) Qty: 0 RF: 0 albuterol sulfate 2.5 mg /3 mL (0.083 %) Solution For Nebulization 2.5 mg inhalation Q2H PRN PRN (Reason: Shortness of Breath/Wheezing) Qty: 0 RF: 0 melatonin 3 mg Tablet 3 mg PO QHS PRN PRN (Reason: Insomnia) Qty: 0 RF: 0 alum-mag hydroxide-simeth [Mag-Al Plus Extra Strength] 400-400-40 mg/5 mL Suspension 30 ml PO Q6H PRN PRN (Reason: Gastric Burning) Qty: 0 RF: 0 menthol-zinc oxide [Calmoseptine] 0.44-20.6 % Ointment 1 applic topical BID Qty: 0 RF: 0 Continued levothyroxine 175 mcg tablet 175 mcg PO DAILY RF: 0 donepezil 10 mg tablet 10 mg PO DAILY RF: 0 Discontinued terbinafine HCl 250 mg tablet 250 mg PO DAILY RF: 0 Referrals / Follow Up: Angel Royal DO [Primary Care Provider] - Within 2 Weeks Disposition Disposition (needs filled in before D/C Order can be placed): Retirement Facility
--- NOTE | 2021-07-08 11:56 | PCM.DC.SUM ---
Providers Date of Admission: 06/25/21 Primary Care Physician: Dr. Angel Royal, Consultations 07/07/21 13:28 Consult: Podiatry Routine Consulting Provider: Raisa Mason Reason for Consult: toenail management EMERGENT Consult: No MD Notified: Yes Date Notified: 07/07/21 Time Notified: 13:28 Method of Notification: in person Reason For Visit: SARS COV 2 INFECTION WITH ENCEPHALOPATHY Diagnosis Discharge Diagnosis (1) COVID-19 virus infection: Status: Acute Code(s): U07.1 - COVID-19 (2) Infectious encephalopathy: Status: Acute Code(s): G93.49 - Other encephalopathy; B99.9 - Unspecified infectious disease Medications at Discharge Home Medications donepezil 10 mg PO DAILY 06/25/21 levothyroxine 175 mcg PO DAILY 06/25/21 acetaminophen [Tylenol] 650 mg PO Q6H PRN PRN #0 tab 07/08/21 albuterol sulfate 2.5 mg INHALATION Q2H PRN PRN #0 ml 07/08/21 alum-mag hydroxide-simeth [Mag-Al Plus Extra Strength] 30 ml PO Q6H PRN PRN #0 ml 07/08/21 melatonin 3 mg PO QHS PRN PRN #0 tab 07/08/21 menthol-zinc oxide [Calmoseptine] 1 applic TOPICAL BID #0 g 07/08/21 quetiapine 12.5 mg PO QHS PRN PRN #0 tab 07/08/21 Weight / BMI Weight Weight: 105.7 kg Body Mass Index (BMI) 33.4 ABG / Lab / Microbiology Data Result Diagrams: 07/05/21 05:56 07/05/21 05:56 Microbiology: Microbiology 06/25/21 16:40 Blood Culture (Wb) - Right Hand Bacteria Detection (PCR) - Final 06/25/21 16:40 Blood Culture (Wb) - Right Hand Blood Culture - Final Presumptive Micrococcus spp. 06/25/21 16:10 Blood Culture (Wb) - Left Hand Blood Culture - Final No growth in 5 days. 06/25/21 17:20 Urine Catheter - [place] Urine Culture - Final Culture exhibits no growth. 06/25/21 23:00 Urine, Random Legionella Antigen - Final 06/25/21 23:00 Urine Catheter - [place] Streptococcus pneumoniae Antigen (M - Final 06/25/21 17:00 Nasal Secretion SARS-CoV-2 Antigen (Rapid) - Final SARS-CoV-2 (COVID 19) Discharge Plan Admission Admit Date/Time: 06/25/21 18:02 Attending Provider: Raphael Osei Primary Care Provider: Angel Royal Consulting Providers: Raisa Mason Discharge Orders/Prescriptions Prescriptions: New quetiapine 25 mg Tablet 12.5 mg PO QHS PRN PRN (Reason: evening agitation) Qty: 0 RF: 0 acetaminophen [Tylenol] 325 mg Tablet 650 mg PO Q6H PRN PRN (Reason: Pain Score 1-10/Temp > 100.7 F) Qty: 0 RF: 0 albuterol sulfate 2.5 mg /3 mL (0.083 %) Solution For Nebulization 2.5 mg inhalation Q2H PRN PRN (Reason: Shortness of Breath/Wheezing) Qty: 0 RF: 0 melatonin 3 mg Tablet 3 mg PO QHS PRN PRN (Reason: Insomnia) Qty: 0 RF: 0 alum-mag hydroxide-simeth [Mag-Al Plus Extra Strength] 400-400-40 mg/5 mL Suspension 30 ml PO Q6H PRN PRN (Reason: Gastric Burning) Qty: 0 RF: 0 menthol-zinc oxide [Calmoseptine] 0.44-20.6 % Ointment 1 applic topical BID Qty: 0 RF: 0 Continued levothyroxine 175 mcg tablet 175 mcg PO DAILY RF: 0 donepezil 10 mg tablet 10 mg PO DAILY RF: 0 Discontinued terbinafine HCl 250 mg tablet 250 mg PO DAILY RF: 0 Referrals / Follow Up: Angel Royal DO [Primary Care Provider] - Within 2 Weeks Disposition Disposition (needs filled in before D/C Order can be placed): Residential Facility
--- NOTE | 2021-07-08 11:59 | DS.PCM_ITS ---
Providers Date of Admission: 06/25/21 Primary Care Physician: Dr. Angel Royal, Consultations 07/07/21 13:28 Consult: Podiatry Routine Consulting Provider: Raisa Mason Reason for Consult: toenail management EMERGENT Consult: No MD Notified: Yes Date Notified: 07/07/21 Time Notified: 13:28 Method of Notification: in person Reason For Visit: SARS COV 2 INFECTION WITH ENCEPHALOPATHY Diagnosis Discharge Diagnosis (1) COVID-19 virus infection: Status: Acute Code(s): U07.1 - COVID-19 (2) Infectious encephalopathy: Status: Acute Code(s): G93.49 - Other encephalopathy; B99.9 - Unspecified infectious disease Medications at Discharge Home Medications donepezil 10 mg PO DAILY 06/25/21 levothyroxine 175 mcg PO DAILY 06/25/21 acetaminophen [Tylenol] 650 mg PO Q6H PRN PRN #0 tab 07/08/21 albuterol sulfate 2.5 mg INHALATION Q2H PRN PRN #0 ml 07/08/21 alum-mag hydroxide-simeth [Mag-Al Plus Extra Strength] 30 ml PO Q6H PRN PRN #0 ml 07/08/21 melatonin 3 mg PO QHS PRN PRN #0 tab 07/08/21 menthol-zinc oxide [Calmoseptine] 1 applic TOPICAL BID #0 g 07/08/21 quetiapine 12.5 mg PO QHS PRN PRN #0 tab 07/08/21 Hospital Course Operations None Summary of Care Provided Minutes Spent on Discharge: 40 Hospital Course: 1. Acute encephalopathy Secondary to COVID-19 pneumonia. Patient Covid has been treated appropriately however patient delirium still persist. His underlying history of dementia may be complicating his care -07/06/2021atient seen appears calm this a.m. Patient is more engaging compared to previous day. 07/07/2021; Patient has remained stable without oxygen. Per nursing staff oxygen saturation is ranged from 91 to 93%. Plan is for patient to be transferred to a senior living facility pending bed availability -07/08/2021; Patient seen appears comfortable at rest. -[facility] once insurance precertification was obtained 2. Acute COVID infection ? Patient admitted for symptomatic treatment currently not requiring oxygen therefore not a candidate for Decadron moreover onset of symptoms not known ruling him out for remdesivir -Patient had to be placed on supplemental oxygen resulting in patient being initiated on Decadron. He was also found to have elevated D-dimer, CTA of the chest was negative for PE he was however found to have bilateral pneumonia. Decadron initiated. Also did start superimposed antibiotic therapy -Patient was asymptomatic at the time of discharge from the [facility] 3. Acute rhabdomyolysis Due to prolonged period of immobilization on fluids with monitoring of CPK levels Managed with IV fluids. 5. Thrombocytopenia ? 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 Patient had been started on Lovenox on admission discontinued due to further drop in platelet counts level -06/27/2021 platelet count; 98 ?07/05/2021; platelet count has stabilized 6. Early onset dementia ? Patient is on donepezil discontinue in addition to supportive care 7. History of thyroidectomy ? On account of toxic multinodular goiter. Patient is on replacement therapy with levothyroxine did order for TSH 8. DVT prophylaxis ? SCDs only in view of above 9. Hypocalcemia -Multifactorial including possibly low oral intake as well as hypoalbuminemia. Corrected calcium for the low albumin 7.6. Physical Exam Narrative GENERAL: Patient in no apparent distress HEENT: Atraumatic; EYES; Anicteric, Normal Conjunctiva NECK; supple, normal thyroid, RESPIRATORY: Diminished to auscultation CARDIOVASCULAR: Regular S1 S2, GI: soft, normoactive bowel sounds, : No Renal angle tenderness; EXTREMITIES: Chronic skin changes lower extremities MUSCULOSKELETAL: no muscle waisting NEURO: Awake; no lateralizing signs. SKIN: No Rash PSYCH; Flat affect Weight / BMI Weight Weight: 105.7 kg Body Mass Index (BMI) 33.4 ABG / Lab / Microbiology Data Result Diagrams: 07/05/21 05:56 07/05/21 05:56 Microbiology: Microbiology 06/25/21 16:40 Blood Culture (Wb) - Right Hand Bacteria Detection (PCR) - Fi nal 06/25/21 16:40 Blood Culture (Wb) - Right Hand Blood Culture - Final Presumptive Micrococcus spp. 06/25/21 16:10 Blood Culture (Wb) - Left Hand Blood Culture - Final No growth in 5 days. 06/25/21 17:20 Urine Catheter - [place] Urine Culture - Final Culture exhibits no growth. 06/25/21 23:00 Urine, Random Legionella Antigen - Final 06/25/21 23:00 Urine Catheter - [place] Streptococcus pneumoniae Antigen (M - Final 06/25/21 17:00 Nasal Secretion SARS-CoV-2 Antigen (Rapid) - Final SARS-CoV-2 (COVID 19) Meaningful Use Info Meaningful Use Diagnoses (Choose all that apply): None applicable Discharge Plan Admission Admit Date/Time: 06/25/21 18:02 Attending Provider: Raphael Osei Primary Care Provider: Angel Royal Consulting Providers: Raisa Mason Discharge Orders/Prescriptions Prescriptions: New quetiapine 25 mg Tablet 12.5 mg PO QHS PRN PRN (Reason: evening agitation) Qty: 0 RF: 0 acetaminophen [Tylenol] 325 mg Tablet 650 mg PO Q6H PRN PRN (Reason: Pain Score 1-10/Temp > 100.7 F) Qty: 0 RF: 0 albuterol sulfate 2.5 mg /3 mL (0.083 %) Solution For Nebulization 2.5 mg inhalation Q2H PRN PRN (Reason: Shortness of Breath/Wheezing) Qty: 0 RF: 0 melatonin 3 mg Tablet 3 mg PO QHS PRN PRN (Reason: Insomnia) Qty: 0 RF: 0 alum-mag hydroxide-simeth [Mag-Al Plus Extra Strength] 400-400-40 mg/5 mL Suspension 30 ml PO Q6H PRN PRN (Reason: Gastric Burning) Qty: 0 RF: 0 menthol-zinc oxide [Calmoseptine] 0.44-20.6 % Ointment 1 applic topical BID Qty: 0 RF: 0 Continued levothyroxine 175 mcg tablet 175 mcg PO DAILY RF: 0 donepezil 10 mg tablet 10 mg PO DAILY RF: 0 Discontinued terbinafine HCl 250 mg tablet 250 mg PO DAILY RF: 0 Referrals / Follow Up: Angel Royal DO [Primary Care Provider] - Within 2 Weeks Disposition Disposition (needs filled in before D/C Order can be placed): [facility] Facility Charges/Coding Visit Charges Inpatient E&M: 05671 Disch Hosp
--- NOTE | 2021-07-08 12:51 | CASEMGMT ---
Social Work Note FELICITAS received update from Lisandra at [facility] that pre-cert has been obtained and pt can discharge to [facility] today. FELICITAS updated physician. FELICITAS faxed completed discharge paperwork to [facility] including transfer to extended care facility, signed medication list, any scripts, COVID test/tool and [facility]. Original in SNF Folder and copy on pt's chart. FELICITAS completed convalescent [facility]000 in [facility]. Original in SNF folder and copy on pt's chart. FELICITAS spoke with RN, pt to transport via cot. FELICITAS accessed trip assist and arranged transportation via cot for 1:30pm. FELICITAS completed transportation form and placed on SNF Folder and copy on pt's chart. RN updated on transportation time. FELICITAS placed a call to Lisandra at [facility] and updated her on transportation time. FELICITAS attempted to update pt, pt just keep telling this worker what do you want? and I'm fine. FELICITAS placed a call to pt's CHUCK Garcai and updated her on approval and discharge to [facility] today. Radha states understanding. RN updated. FELICITAS placed a call to pt's CM at [facility] Kinjal Mariee and updated her on pt discharging to [facility] today. FELICITAS placed a call to Anthony with [facility] and left message updating her that pt will discharge to [facility] today. Plan: [facility] skilled today under Convalescent stay with Physician's ambulance transporting pt via cot at 1:30pm Mayra Bernstein MSW, SAFETY SUPERVISOR
--- NOTE | 2021-07-08 13:20 | NURSING ---
Report called to [facility] spoke with Saundra. Wrote out to patient on paper where he is going as he is very [place]. IV removed.
[2021-07-08 13:23] VITALS: BP 128/73; PULSE 59; RESP 18; TEMP 36.4; O2SAT 93
== END 2021-07-08 13:35 | DRG 177 ==
LOC: ED 17:58 → MS3 18:31
PROVIDERS: Family Medicine; Admitting Provider Internal Medicine; Emergency Provider Emergency Medicine; PCP Family Medicine; Visit Provider Internal Medicine
DX: U07.1 COVID-19 (principal); G92.8 Other toxic encephalopathy; J12.82 Pneumonia due to coronavirus disease 2019; M62.82 Rhabdomyolysis; D69.6 Thrombocytopenia, unspecified; E83.51 Hypocalcemia; F03.90 Unspecified dementia, unspecified severity, without behavioral disturbance, psychotic disturbance, mood disturbance, and anxiety; F17.210 Nicotine dependence, cigarettes, uncomplicated; E87.6 Hypokalemia; B35.1 Tinea unguium; E89.0 Postprocedural hypothyroidism; M79.674 Pain in right toe(s); M79.675 Pain in left toe(s); Z66 Do not resuscitate; Z79.899 Other long term (current) drug therapy; Z79.890 Hormone replacement therapy
CPT/HCPCS: 36415; 36600; 51702; 70450; 71045; 71275; 80048; 80053; 81001; 82330; 82550; 82803; 83605; 83615; 83735; 84100; 84145; 84443; 84484; 85025; 85379; 85384; 85610; 85730; 87040; 87086; 87149; 87426; 87449; 93005; 94640; 94762; 97110; 97162; 97166; 97530; 97535; 99251; 99285; 99406; J7030; J7040; Q9967; A4216; G0463; J0610; J1940